=== PATIENT | male | born 1955 | race Caucasian/White ===

== ENCOUNTER → 2023-03-12 | Outpatient (CLI) | payer MEDICARE, OTHER ==
--- NOTE | 2023-03-12 18:47 | CA ---
Transthoracic Echo Report Name: Lico Cristina Age: 67 Gender: M : 1955 Exam Date: 03/12/2023 16:27 Exam Location: [facility] Ht (in): 68 Wt (lb): 310 Ordering Physician: Joni Josue MD Attending/Referring Phys: Teresa Teran PAC Health Equipment Servicer Emma Bullard [facility] Procedure CPT: Indications: R01.1 Murmur Cardiac Hx: Technical Quality: Technically difficult study Contrast 1: Total Dose (mL): Contrast 2: Total Dose (mL): MEASUREMENTS (Male / Female) Normal Values 2D ECHO LV Diastolic Diameter PLAX 5.0 cm 4.2 - 5.9 / 3.9 - 5.3 cm LV Systolic Diameter PLAX 3.6 cm IVS Diastolic Thickness 1.0 cm 0.6 - 1.0 / 0.6 - 0.9 cm LVPW Diastolic Thickness 0.9 cm 0.6 - 1.0 / 0.6 - 0.9 cm LV Relative Wall Thickness 0.4 LVOT Diameter 2.0 cm Ascending Aorta Diameter 4.0 cm M-MODE Aortic Root Diameter MM 2.8 cm LA Systolic Diameter MM 3.6 cm LA Ao Ratio MM 1.3 AV Cusp Separation MM 1.4 cm DOPPLER AV Peak Velocity 187.2 cm/s AV Peak Gradient 14.0 mmHg AV Mean Velocity 135.0 cm/s AV Mean Gradient 8.2 mmHg AV Velocity Time Integral 35.0 cm LVOT Peak Velocity 95.8 cm/s LVOT Peak Gradient 3.7 mmHg LVOT Velocity Time Integral 19.5 cm LVOT Stroke Volume 59.6 cm??? LVOT Stroke Volume Index 24.2 ml/m??? LVOT Cardiac Index 1561.0 cm???/min???m??? AV Area Cont Eq vti 1.7 cm??? AV Area Cont Eq pk 1.6 cm??? Mitral E Point Velocity 58.8 cm/s Mitral A Point Velocity 75.6 cm/s Mitral E to A Ratio 0.8 MV Deceleration Time 207.9 ms LV E' Lateral Velocity 11.1 cm/s Mitral E to LV E' Lateral Ratio 5.3 LV E' Septal Velocity 8.4 cm/s Mitral E to LV E' Septal Ratio 7.0 Right Atrial Pressure 3.0 mmHg FINDINGS Left Ventricle Left ventricular cavity size at the upper limits of normal. Left ventricular cavity size normal. Low normal left ventricular systolic function with no obvious regional wall motion abnormalities. Left ventricular ejection fraction is estimated at 55-60 %. Right Ventricle Mild right ventricular dilatation. Unable to estimate the right ventricular systolic pressure. Right Atrium Mild right atrial dilatation. Left Atrium Normal left atrial size. Mitral Valve Structurally normal mitral valve. No mitral regurgitation. Aortic Valve Aortic valve sclerosis. No aortic regurgitation. Tricuspid Valve Structurally normal tricuspid valve. No tricuspid regurgitation. Pulmonic Valve Pulmonic valve not well visualized. Pericardium No pericardial effusion. Echo free space anterior to the right ventricle likely represents a fat pad. Aorta Normal size aortic root and mildly dilated proximal ascending aorta. CONCLUSIONS 1. Normal left ventricle size and systolic function 2. Aortic sclerosis with no evidence of significant stenosis 3.Technically difficult study. Previewed by: Dr. Austin Saenz MD (Electronically Signed) Final Date: 12 March 2023 18:46
== END | disposition home or self-care (01) ==
LOC: RADECHMAIN 16:14
PROVIDERS: ATTEND Family Medicine
DX: R01.1 Cardiac murmur, unspecified (principal); I35.8 Other nonrheumatic aortic valve disorders
CPT/HCPCS: 93306

== ENCOUNTER 2023-09-14 15:10 | Emergency (ER) | payer MEDICARE, OTHER ==
--- NOTE | 2023-09-14 15:56 | ED ---
General Adult HPI - General Chief complaint: Recheck/Abnormal Lab/Rx Stated complaint: Catheter issues Time Seen by Provider: 09/14/23 15:28 Source: patient, RN notes reviewed Mode of arrival: ambulatory Limitations: no limitations - History of Present Illness Initial comments: This is a 68-year-old male with a history of prostatomegaly presents emergency department chief complaint of suprapubic tenderness and potential complications with his urinary catheter. States that he has had a indwelling urinary catheter over the past 2 months due to experiencing urinary retention with the diagnosis of prostatic hyperplasia. Patient states that he was seen at [facility] on where he was discharged home with topical antibiotic cream for his meatus in addition to some oral antibiotics the medication that he is finished. He denies discoloration or foul odor from his urinary catheter drainage bag. Patient is unaware of the date of his last thinner change, states that it was most likely in the middle of August. Denies fevers, nausea, vomiting, diarrhea, constipation. - Related Data Previous Rx's Medication Instructions Recorded Ciprofloxacin HCl [Cipro] 500 mg PO Q12HR #20 tablet 09/14/23 Allergies Allergy/AdvReac Type Severity Reaction Status Date / Time No Known Allergies Allergy Verified 09/14/23 15:14 Review of Systems ROS Statement: Those systems with pertinent positive or pertinent negative responses have been documented in the HPI. ROS Other: All systems not noted in ROS Statement are negative. Past Medical History Past Medical History: Diabetes Mellitus, Prostate Disorder Past Surgical History: Orthopedic Surgery Past Psychological History: No Psychological Hx Reported Smoking Status: Never smoker Past Alcohol Use History: None Reported Past Drug Use History: None Reported General Exam Limitations: no limitations General appearance: alert, in no apparent distress Head exam: Present: atraumatic, normocephalic, normal inspection Eye exam: Present: normal appearance, PERRL, EOMI. Absent: scleral icterus, conjunctival injection, periorbital swelling ENT exam: Present: normal exam, mucous membranes moist Neck exam: Present: normal inspection. Absent: tenderness, meningismus, lymphadenopathy Respiratory exam: Present: normal lung sounds bilaterally. Absent: respiratory distress, wheezes, rales, rhonchi, stridor Cardiovascular Exam: Present: regular rate, normal rhythm, normal heart sounds. Absent: systolic murmur, diastolic murmur, rubs, gallop, clicks GI/Abdominal exam: Present: soft, tenderness (suprapubic), normal bowel sounds. Absent: distended, guarding, rebound, rigid exam: Present: urethral discharge, other (purulent drainage noted from the meatus, tenderness to examination). Absent: normal inspection Extremities exam: Present: normal inspection, full ROM, normal capillary refill. Absent: tenderness, pedal edema, joint swelling, calf tenderness Back exam: Present: normal inspection Neurological exam: Present: alert, oriented X3, CN II-XII intact Psychiatric exam: Present: normal affect, normal mood Skin exam: Present: warm, dry, intact, normal color. Absent: rash Course Vital Signs 09/14/23 09/14/23 09/14/23 15:11 16:25 18:10 Temperature 98.4 F 98.9 F Pulse Rate 111 H 94 96 Respiratory 20 18 18 Rate Blood Pressure 130/68 143/80 103/68 O2 Sat by Pulse 99 97 99 Oximetry Medical Decision Making - Medical Decision Making Was pt. sent in by a medical professional or institution (, PA, DISABILITY BENEFITS SPECIALIST, urgent care, hospital, or [facility]...) When possible be specific @ -No Did you speak to anyone other than the patient for history (EMS, parent, family, police, friend...)? What history was obtained from this source @ -No Did you review nursing and triage notes (agree or disagree)? Why? @ -I reviewed and agree with nursing and triage notes Were old charts reviewed (outside hosp., previous admission, EMS record, old EKG, old radiological studies, urgent care reports/EKG's, [facility] records)? Report findings @ -No old charts were reviewed Differential Diagnosis (chest pain, altered mental status, abdominal pain women, abdominal pain men, vaginal bleeding, weakness, fever, dyspnea, syncope, headache, dizziness, GI bleed, back pain, seizure, CVA, palpatations, mental health, musculoskeletal)? @ -Differential Abdominal Pain Men: Appendicitis, cholecystitis, diverticulosis, ischemic bowel, pancreatitis, hepatitis, UTI, gastroenteritis, AAA, incarcerated hernia, bowel obstruction, constipation, inflammatory bowel, hepatitis, peptic ulcer disease, splenic infarction, perforated viscus, testicular torsion, this is not meant to be an all-inclusive list EKG interpreted by me (3pts min.). @ -None X-rays interpreted by me (1pt min.). @ -None done CT interpreted by me (1pt min.). @ -None done U/S interpreted by me (1pt. min.). @ -None done What testing was considered but not performed or refused? (CT, X-rays, U/S, labs)? Why? @ -Labs and imaging were considered but deferred at this time due to patient having localized pain in his suprapubic region in addition to discharge from the meatus. What meds were considered but not given or refused? Why? @ -None Did you discuss the management of the patient with other professionals (professionals i.e. Dr., PA, DISABILITY BENEFITS SPECIALIST, lab, RT, psych nurse, social services aide, four horse hitch driver, teacher, submarine advisory team watch officer, spring encaser)? Give summary @ -No Was smoking cessation discussed for >3mins.? @ -No Was critical care preformed (if so, how long)? @ -No Were there social determinants of health that impacted care today? How? (Homelessness, low income, unemployed, alcoholism, drug addiction, transportation, low edu. Level, literacy, decrease access to med. care, [facility]ci, rehab)? @ -No Was there de-escalation of care discussed even if they declined (Discuss DNR or withdrawal of care, Hospice)? DNR status @ -No What co-morbidities impacted this encounter? (DM, HTN, Smoking, COPD, CAD, Cancer, CVA, ARF, Chemo, Hep., AIDS, mental health diagnosis, sleep apnea, morbid obesity)? @ -Obesity, hypertension. Was patient admitted / discharged? Hospital course, mention meds given and route, prescriptions, significant lab abnormalities, going to OR and other pertinent info. @ -Discharge. 68-year-old male chief complaint of suprapubic pain and tenderness. On examination patient noted to have suprapubic tenderness, abdomen is soft no signs of rebound tenderness or rigidity. Additionally on examination patient's Kaur catheter noted to have drainage. Patient being unaware of when last catheter was replaced order for replacement of Kaur catheter in addition to a urinalysis sent. Discussion with nursing staff stated that bladder scan revealed over 1000 cc of urine within the bladder. On replacement of the Kaur catheter there was a large amount of sediment within the Kaur tubing. On reinsertion the catheter was flowing well with output of over 1000 cc. Urinalysis sent revealed Of infection including moderate blood, large leukocyte esterase, greater than 182 white blood cells and many white blood cell clumps. Reevaluation, patient states that his abdominal pain has markedly improved after pain medication and replacement of catheter. Test with patient at bedside he is unaware of what medication he was prescribed at [facility] when she completed a few days ago. Patient will be discharged home on oral Cipro and instructed to follow-up with his urologist as scheduled. Strict return parameters discussed with the patient. All questions answered at bedside. Case discussed with Dr. Marie. Undiagnosed new problem with uncertain prognosis? @ -No Drug Therapy requiring intensive monitoring for toxicity (Heparin, Nitro, Insulin, Cardizem)? @ -No Were any procedures done? @ -No Diagnosis/symptom? @ -Urinary tract infection, BPH, indwelling Kaur catheter. Acute, or Chronic, or Acute on Chronic? @ -Acute Uncomplicated (without systemic symptoms) or Complicated (systemic symptoms)? @ -Uncomplicated Side effects of treatment? @ -No Exacerbation, Progression, or Severe Exacerbation? @ -No Poses a threat to life or bodily function? How? (Chest pain, [place], [place], pneumonia, PE, COPD, DKA, ARF, appy, cholecystitis, CVA, Diverticulitis, Homicidal, Suicidal, threat to staff... and all critical care pts) @ -No - Lab Data Lab Results 09/14/23 Range/Units 16:28 Urine Color Colorless Urine Appearance Cloudy (Clear) Urine pH 5.5 (5.0-8.0) Ur Specific [place] 1.014 (1.001-1.035) Urine Protein 1+ H (Negative) Urine Glucose (UA) 4+ H (Negative) Urine Ketones Negative (Negative) Urine Blood Moderate H (Negative) Urine Nitrite Negative (Negative) Urine Bilirubin Negative (Negative) Urine Urobilinogen <2.0 (<2.0) mg/dL Ur Leukocyte Esterase Large H (Negative) Urine RBC 67 H (0-5) /hpf Urine WBC >182 H (0-5) /hpf Urine WBC Clumps Many H (None) /hpf Ur Squamous Epith Cells <1 (0-4) /hpf Urine Bacteria Occasional H (None) /hpf Urine Mucus Rare H (None) /hpf Urine Yeast (Budding) Rare H (None) /hpf Disposition Clinical Impression: Urinary tract infection associated with catheterization of urinary tract Narrative: Please return to the Emergency Department if symptoms worsen or any other concerns. Follow-up as scheduled with your urologist this week for further evaluation. Complete full course of antibiotics as prescribed. Disposition: HOME SELF-CARE Condition: Good Instructions (If sedation given, give patient instructions): Urinary Tract Infection in Men (DC) Prescriptions: Ciprofloxacin HCl [Cipro] 500 mg PO Q12HR #20 tablet Is patient prescribed a controlled substance at d/c from ED?: No Referrals: Joni Josue MD [Primary Care Provider] - 1-2 days Time of Disposition: 17:54
[2023-09-14] MEDS: HYDROmorphone 1 MG/ML 1 ML SYRINGE IM STA (16:28)
[2023-09-14 16:56] VITALS: RESP 18
[2023-09-14 17:35] LABS: Appearance,Urine Cloudy (Clear); Bacteria,Urine Occasional /hpf; Bilirubin,Urine Negative (Negative); Blood,Urine Moderate (Negative); Budding Yeast,Urine Rare /hpf; Color,Urine Colorless; Glucose,Urine (UA) 4+ (Negative); Ketones,Urine Negative (Negative); Leukocyte Esterase,Urine Large (Negative); Mucus,Urine Rare /hpf; Nitrite,Urine Negative (Negative); PH, Urine 5.5 (5.0-8.0); Protein,Urine 1+ (Negative); RBC,Urine 67 /hpf (0-5); Specific Gravity,Urine 1.014 (1.001-1.035); Squamous Epithelial Cell,Urine <1 /hpf (0-4); Urobilinogen,Urine <2.0 mg/dL (<2.0); WBC,Urine >182 /hpf (0-5)
[2023-09-14 18:14] VITALS: BP 103/68; PULSE 96; TEMP 98.9
== END 2023-09-14 18:13 | disposition home or self-care (01) ==
LOC: EC 15:10
DX: T83.098A Other mechanical complication of other urinary catheter, initial encounter (principal)
CPT/HCPCS: 51798; 81001; 99284; 96372; 51702; J1170

== ENCOUNTER 2023-09-27 02:38 | Emergency (ER) | payer MEDICARE, OTHER ==
--- NOTE | 2023-09-27 02:57 | ED ---
Abdominal Pain HPI - General Chief Complaint: Abdominal Pain Stated Complaint: Catheter Malfunction Time Seen by Provider: 09/27/23 02:57 Source: patient Mode of arrival: ambulatory Limitations: no limitations - History of Present Illness Initial Comments: Lico is a 68-year-old man whose had a Kaur catheter in place for 2 weeks, he has had to have it replaced multiple times. Patient states that he feels like it is occluded and he has not been able to drain his bladder he is having significant suprapubic discomfort. Patient states that he was supposed to see urology on to have the catheter removed however he did not make it to his appointment so the catheter remained in place. - Related Data Previous Rx's Medication Instructions Recorded Ciprofloxacin HCl [Cipro] 500 mg PO Q12HR #20 tablet 09/14/23 Cephalexin [Keflex] 500 mg PO Q6HR 10 Days #40 cap 09/27/23 Allergies Allergy/AdvReac Type Severity Reaction Status Date / Time No Known Allergies Allergy Verified 09/14/23 15:14 Review of Systems ROS Statement: Those systems with pertinent positive or pertinent negative responses have been documented in the HPI. ROS Other: All systems not noted in ROS Statement are negative. Past Medical History Past Medical History: Diabetes Mellitus, Prostate Disorder Past Surgical History: Orthopedic Surgery Past Psychological History: No Psychological Hx Reported Smoking Status: Never smoker Past Alcohol Use History: None Reported Past Drug Use History: None Reported General Exam - General Exam Comments Initial Comments: Physical Exam GENERAL: Patient is well-developed and well-nourished. Patient is nontoxic and well-hydrated and is in no distress. HENT: Normocephalic, Atraumatic EYES: PERRL, EOMI PULMONARY: Unlabored respirations. CARDIOVASCULAR: RRR Warm and well perfused extremities ABDOMEN: Non-distended SKIN: No rashes or bruising : Buried penis purulent discharge around the Kaur NEUROLOGIC: Alert and oriented Normal speech Normal gait MUSCULOSKELETAL: Moving all extremities with no apparent injury PSYCHIATRIC: No SI/HI Limitations: no limitations Course Vital Signs 09/27/23 09/27/23 02:53 06:11 Temperature 98.3 F Pulse Rate 117 H 91 Respiratory 20 19 Rate Blood Pressure 138/79 128/61 O2 Sat by Pulse 97 96 Oximetry Medical Decision Making - Lab Data Lab Results 09/27/23 Range/Units 04:47 Urine Color Red Urine Appearance Turbid (Clear) Urine pH 5.5 (5.0-8.0) Ur Specific Spearman 1.023 (1.001-1.035) Urine Protein 1+ H (Negative) Urine Glucose (UA) 3+ H (Negative) Urine Ketones Trace H (Negative) Urine Blood Large H (Negative) Urine Nitrite Negative (Negative) Urine Bilirubin Negative (Negative) Urine Urobilinogen <2.0 (<2.0) mg/dL Ur Leukocyte Esterase Large H (Negative) Urine RBC >182 H (0-5) /hpf Urine WBC >182 H (0-5) /hpf Urine Bacteria Occasional H (None) /hpf Urine Mucus Few H (None) /hpf Ur Yeast w Hyphae Few (None) /hpf Urine Yeast (Budding) Many H (None) /hpf Disposition Clinical Impression: Urinary tract infection associated with catheterization of urinary tract Disposition: HOME SELF-CARE Condition: Stable Prescriptions: Cephalexin [Keflex] 500 mg PO Q6HR 10 Days #40 cap Is patient prescribed a controlled substance at d/c from ED?: No Referrals: Joni Josue MD [Primary Care Provider] - 1-2 days
[2023-09-27 03:05] VITALS: TEMP 98.3
[2023-09-27 05:27] LABS: Appearance,Urine Turbid (Clear); Bacteria,Urine Occasional /hpf; Bilirubin,Urine Negative (Negative); Blood,Urine Large (Negative); Budding Yeast,Urine Many /hpf; Color,Urine Red; Glucose,Urine (UA) 3+ (Negative); Hyphae Yeast, Urine Few /hpf; Ketones,Urine Trace (Negative); Leukocyte Esterase,Urine Large (Negative); Mucus,Urine Few /hpf; Nitrite,Urine Negative (Negative); PH, Urine 5.5 (5.0-8.0); Protein,Urine 1+ (Negative); RBC,Urine >182 /hpf (0-5); Urobilinogen,Urine <2.0 mg/dL (<2.0); WBC,Urine >182 /hpf (0-5)
[2023-09-27 05:28] LABS: Specific Gravity,Urine 1.023 (1.001-1.035)
[2023-09-27 06:42] VITALS: BP 128/61; PULSE 91; RESP 19
[2023-09-27] MEDS: CEPHALEXIN 500MG STARTER PACK 4 CAP BTL PO STA (07:35)
== END 2023-09-27 07:41 | disposition home or self-care (01) ==
LOC: EC 02:38
DX: T83.098A Other mechanical complication of other urinary catheter, initial encounter (principal); N39.0 Urinary tract infection, site not specified
CPT/HCPCS: 51702; 51798; 81001; 87086; 99284

== ENCOUNTER 2023-10-04 23:37 | Emergency (ER) | payer MEDICARE, OTHER ==
[2023-10-04 23:59] VITALS: BP 155/81; PULSE 92; RESP 18; TEMP 98.9
--- NOTE | 2023-10-05 00:33 | ED ---
General Adult HPI - General Chief complaint: Urogenital Stated complaint: clogged cath Time Seen by Provider: 10/05/23 00:27 Source: patient, RN notes reviewed, old records reviewed Mode of arrival: ambulatory Limitations: no limitations - History of Present Illness Initial comments: 68-year-old male presenting with clogged urinary catheter. Patient has indwelling Kaur catheter for urinary retention. He states that he has not had any urine output for the past several hours. He does have some lower abdominal discomfort. No fever. No vomiting. - Related Data Previous Rx's Medication Instructions Recorded Ciprofloxacin HCl [Cipro] 500 mg PO Q12HR #20 tablet 09/14/23 Cephalexin [Keflex] 500 mg PO Q6HR 10 Days #40 cap 09/27/23 Allergies Allergy/AdvReac Type Severity Reaction Status Date / Time No Known Allergies Allergy Verified 10/04/23 23:42 Review of Systems ROS Statement: Those systems with pertinent positive or pertinent negative responses have been documented in the HPI. ROS Other: All systems not noted in ROS Statement are negative. Past Medical History Past Medical History: Diabetes Mellitus, Prostate Disorder Past Surgical History: Orthopedic Surgery Past Psychological History: No Psychological Hx Reported Smoking Status: Never smoker Past Alcohol Use History: None Reported Past Drug Use History: None Reported General Exam Limitations: no limitations General appearance: alert, in no apparent distress Head exam: Present: atraumatic, normocephalic Eye exam: Present: normal appearance, PERRL ENT exam: Present: normal exam Neck exam: Present: normal inspection. Absent: tenderness, meningismus Respiratory exam: Present: normal lung sounds bilaterally. Absent: respiratory distress, wheezes Cardiovascular Exam: Present: regular rate, normal rhythm GI/Abdominal exam: Present: soft. Absent: distended, tenderness, guarding Extremities exam: Present: normal inspection Neurological exam: Present: alert, oriented X3 Psychiatric exam: Present: normal affect, normal mood Skin exam: Present: warm, dry, intact. Absent: cyanosis, diaphoretic Course Vital Signs 10/04/23 23:40 Temperature 98.9 F Pulse Rate 92 Respiratory 18 Rate Blood Pressure 155/81 O2 Sat by Pulse 99 Oximetry Medical Decision Making - Medical Decision Making Was pt. sent in by a medical professional or institution (, PA, REFINING EQUIPMENT OPERATOR, urgent care, hospital, or residential...) When possible be specific @ -No Did you speak to anyone other than the patient for history (EMS, parent, family, police, friend...)? What history was obtained from this source @ -No Did you review nursing and triage notes (agree or disagree)? Why? @ -I reviewed and agree with nursing and triage notes Were old charts reviewed (outside hosp., previous admission, EMS record, old EKG, old radiological studies, urgent care reports/EKG's, residential records)? Report findings @ -No old charts were reviewed Differential Diagnosis:, UTI, clogged urinary catheter EKG interpreted by me (3pts min.). @ -As above X-rays interpreted by me (1pt min.). @ -None done CT interpreted by me (1pt min.). @ -None done U/S interpreted by me (1pt. min.). @ -None done What testing was considered but not performed or refused? (CT, X-rays, U/S, labs)? Why? @ -None What meds were considered but not given or refused? Why? @ -None Did you discuss the management of the patient with other professionals (professionals i.e. , PA, REFINING EQUIPMENT OPERATOR, lab, RT, psych nurse, social sciences department chair, director of conservation, teacher, accounting officer, mattress spring encaser)? Give summary @ -No Was smoking cessation discussed for >3mins.? @ -No Was critical care preformed (if so, how long)? @ -No Were there social determinants of health that impacted care today? How? (Homelessness, low income, unemployed, alcoholism, drug addiction, transportation, low edu. Level, literacy, decrease access to med. care, custodial, rehab)? @ -No Was there de-escalation of care discussed even if they declined (Discuss DNR or withdrawal of care, Hospice)? DNR status @ -No What co-morbidities impacted this encounter? (DM, HTN, Smoking, COPD, CAD, Cancer, CVA, ARF, Chemo, Hep., AIDS, mental health diagnosis, sleep apnea, morbid obesity)? @ -None Was patient admitted / discharged? Hospital course, mention meds given and route, prescriptions, significant lab abnormalities, going to OR and other pertinent info. @ -Kaur catheter exchanged, urinalysis is positive, culture pending, started on antibiotics. Undiagnosed new problem with uncertain prognosis? @ -No Drug Therapy requiring intensive monitoring for toxicity (Heparin, Nitro, Insulin, Cardizem)? @ -No Were any procedures done? @ -No Diagnosis/symptom? @Clogged urinary catheter Acute, or Chronic, or Acute on Chronic? @ -acute Uncomplicated (without systemic symptoms) or Complicated (systemic symptoms)? @ -Default Side effects of treatment? @ -No Exacerbation, Progression, or Severe Exacerbation? @ -No Poses a threat to life or bodily function? How? (Chest pain, [place], [place], pneumonia, PE, COPD, DKA, ARF, appy, cholecystitis, CVA, Diverticulitis, Homicidal, Suicidal, threat to staff... and all critical care pts) @ -No Disposition Clinical Impression: Malfunction of Kaur catheter, Urinary tract infection associated with catheterization of urinary tract Disposition: HOME SELF-CARE Condition: Good Instructions (If sedation given, give patient instructions): Kaur Catheter Placement and Care (ED) Is patient prescribed a controlled substance at d/c from ED?: No Referrals: Joni Josue MD [Primary Care Provider] - 1-2 days Mohsen Barkley MD [STAFF PHYSICIAN] - 1-2 days Time of Disposition: 00:32
[2023-10-05 00:48] LABS: Appearance,Urine Cloudy (Clear); Bilirubin,Urine Negative (Negative); Blood,Urine Trace (Negative); Budding Yeast,Urine Many /hpf; Color,Urine Colorless; Glucose,Urine (UA) 4+ (Negative); Hyphae Yeast, Urine Many /hpf; Ketones,Urine Negative (Negative); Leukocyte Esterase,Urine Large (Negative); Mucus,Urine Rare /hpf; Nitrite,Urine Negative (Negative); PH, Urine 6.5 (5.0-8.0); Protein,Urine Negative (Negative); RBC,Urine 32 /hpf (0-5); Specific Gravity,Urine 1.022 (1.001-1.035); Urobilinogen,Urine <2.0 mg/dL (<2.0); WBC,Urine >182 /hpf (0-5)
== END 2023-10-05 00:34 | disposition home or self-care (01) ==
LOC: EC 23:37
DX: T83.091A Other mechanical complication of indwelling urethral catheter, initial encounter (principal); N39.0 Urinary tract infection, site not specified
CPT/HCPCS: 51702; 81001; 87086; 99283

== ENCOUNTER 2023-10-12 18:16 | Emergency (ER) | payer MEDICARE, OTHER ==
[2023-10-12 19:07] VITALS: TEMP 98.3
--- NOTE | 2023-10-12 19:34 | ED ---
General Adult HPI - General Chief complaint: Urogenital Stated complaint: blocked catheter Time Seen by Provider: 10/12/23 18:55 Source: patient, RN notes reviewed Mode of arrival: ambulatory Limitations: no limitations - History of Present Illness Initial comments: 68-year-old male presents to the emergency department for Chahal catheter issues. Patient states that he has had an indwelling Chahal catheter for 2 months. It has become clogged multiple times in this time period. He reports that it was last changed about 1 week ago. States that it stopped draining around 3pm today. He states that it is in place as he has an enlarged prostate. He has an appointment for urology on the of this month. Denies recent fever, chills, nausea, vomiting. - Related Data Previous Rx's Medication Instructions Recorded Ciprofloxacin HCl [Cipro] 500 mg PO Q12HR #20 tablet 09/14/23 Cephalexin [Keflex] 500 mg PO Q6HR 10 Days #40 cap 09/27/23 Cephalexin [Keflex] 500 mg PO Q12HR #20 cap 10/05/23 Allergies Allergy/AdvReac Type Severity Reaction Status Date / Time No Known Allergies Allergy Verified 10/12/23 18:46 Review of Systems ROS Statement: Those systems with pertinent positive or pertinent negative responses have been documented in the HPI. ROS Other: All systems not noted in ROS Statement are negative. Past Medical History Past Medical History: Diabetes Mellitus, Prostate Disorder History of Any Multi-Drug Resistant Organisms: None Reported Past Surgical History: Orthopedic Surgery Past Psychological History: No Psychological Hx Reported Smoking Status: Never smoker Past Alcohol Use History: None Reported Past Drug Use History: None Reported General Exam Limitations: no limitations General appearance: alert, in no apparent distress Head exam: Present: atraumatic, normocephalic, normal inspection Eye exam: Present: normal appearance, PERRL, EOMI. Absent: scleral icterus, conjunctival injection, periorbital swelling Respiratory exam: Present: normal lung sounds bilaterally. Absent: respiratory distress, wheezes, rales, rhonchi, stridor Cardiovascular Exam: Present: regular rate, normal rhythm, normal heart sounds. Absent: systolic murmur, diastolic murmur, rubs, gallop, clicks GI/Abdominal exam: Present: soft, distended (Suprapubic), normal bowel sounds. Absent: tenderness, guarding, rebound, rigid Extremities exam: Present: pedal edema Neurological exam: Present: alert, oriented X3 Psychiatric exam: Present: normal affect, normal mood Skin exam: Present: warm, dry, intact, normal color. Absent: rash Course Vital Signs 10/12/23 10/12/23 10/12/23 18:43 19:02 21:39 Temperature 97.8 F 98.3 F Pulse Rate 86 69 64 Respiratory 17 18 19 Rate Blood Pressure 92/51 110/72 96/70 O2 Sat by Pulse 99 99 100 Oximetry Medical Decision Making - Medical Decision Making Was pt. sent in by a medical professional or institution (, [facility], DEVELOPER [employer]AT[employer], urgent care, hospital, or fpc...) When possible be specific @ -No Did you speak to anyone other than the patient for history (EMS, parent, family, police, friend...)? What history was obtained from this source @ -No Did you review nursing and triage notes (agree or disagree)? Why? @ -I reviewed and agree with nursing and triage notes Were old charts reviewed (outside hosp., previous admission, EMS record, old EKG, old radiological studies, urgent care reports/EKG's, fpc records)? Report findings @ -No old charts were reviewed Differential Diagnosis (chest pain, altered mental status, abdominal pain women, abdominal pain men, vaginal bleeding, weakness, fever, dyspnea, syncope, headache, dizziness, GI bleed, back pain, seizure, CVA, palpatations, mental health, musculoskeletal)? @ -UTI, hematuria, clogged chahal catheter, this list is not all inclusive EKG interpreted by me (3pts min.). @ -None X-rays interpreted by me (1pt min.). @ -None done CT interpreted by me (1pt min.). @ -None done U/S interpreted by me (1pt. min.). @ -None done What testing was considered but not performed or refused? (CT, X-rays, U/S, labs)? Why? @ -None What meds were considered but not given or refused? Why? @ -None Did you discuss the management of the patient with other professionals (professionals i.e. MALENA Lorenzo, [employer]EL[employer], lab, RT, psych nurse, social media editor, grade checker, teacher, aviation ordnance officer, caser shoe parts)? Give summary @ -No Was smoking cessation discussed for >3mins.? @ -No Was critical care preformed (if so, how long)? @ -No Were there social determinants of health that impacted care today? How? (Homelessness, low income, unemployed, alcoholism, drug addiction, transportation, low edu. Level, literacy, decrease access to med. care, group home, rehab)? @ -No Was there de-escalation of care discussed even if they declined (Discuss DNR or withdrawal of care, Hospice)? DNR status @ -No What co-morbidities impacted this encounter? (DM, HTN, Smoking, COPD, CAD, Cancer, CVA, ARF, Chemo, Hep., AIDS, mental health diagnosis, sleep apnea, morbid obesity)? @ -None Was patient admitted / discharged? Hospital course, mention meds given and route, prescriptions, significant lab abnormalities, going to OR and other pertinent info. @ -Discharged. Patient presented to the emergency department for evaluation of decreased urine output from chahal catheter. It does not appear that the patient is caring for the chahal appropriately. Chahal was replaced. He was advised on appropriate care. UA was obtained which contained yeast. Will be sent for culture. Patient was given a dose of diflucan. Advised on appropriate wound care and follow-up with urology. He is understanding agreeable plan. Patient stable for discharge. Case discussed with Dr. Dong Undiagnosed new problem with uncertain prognosis? @ -No Drug Therapy requiring intensive monitoring for toxicity (Heparin, Nitro, Insulin, Cardizem)? @ -No Were any procedures done? @ -No Diagnosis/symptom? @ -chahal catheter malfunction Acute, or Chronic, or Acute on Chronic? @ -Acute Uncomplicated (without systemic symptoms) or Complicated (systemic symptoms)? @ -uncomplicated Side effects of treatment? @ -No Exacerbation, Progression, or Severe Exacerbation? @ -No Poses a threat to life or bodily function? How? (Chest pain, [place], [place], pneumonia, PE, COPD, DKA, ARF, appy, cholecystitis, CVA, Diverticulitis, Homicidal, Suicidal, threat to staff... and all critical care pts) @ -No - Lab Data Lab Results 10/12/23 Range/Units 20:02 Urine Color Light Yellow Urine Appearance Clear (Clear) Urine pH 5.0 (5.0-8.0) Ur Specific [place] 1.017 (1.001-1.035) Urine Protein Negative (Negative) Urine Glucose (UA) 4+ H (Negative) Urine Ketones Negative (Negative) Urine Blood Large H (Negative) Urine Nitrite Negative (Negative) Urine Bilirubin Negative (Negative) Urine Urobilinogen <2.0 (<2.0) mg/dL Ur Leukocyte Esterase Moderate H (Negative) Urine RBC >182 H (0-5) /hpf Urine WBC 35 H (0-5) /hpf Urine Mucus Rare H (None) /hpf Ur Yeast w Hyphae Occasional (None) /hpf Urine Yeast (Budding) Occasional H (None) /hpf Disposition Clinical Impression: Malfunction of Chahal catheter Disposition: HOME SELF-CARE Condition: Stable Instructions (If sedation given, give patient instructions): Chahal Catheter Placement and Care (ED) Additional Instructions: Please follow up with urology as scheduled. Return to the emergency department for new or worsening symptoms. Is patient prescribed a controlled substance at d/c from ED?: No Referrals: Joni Josue MD [Primary Care Provider] - 1-2 days
[2023-10-12 20:43] LABS: Appearance,Urine Clear (Clear); Bilirubin,Urine Negative (Negative); Blood,Urine Large (Negative); Budding Yeast,Urine Occasional /hpf; Color,Urine Light Yellow; Glucose,Urine (UA) 4+ (Negative); Hyphae Yeast, Urine Occasional /hpf; Ketones,Urine Negative (Negative); Leukocyte Esterase,Urine Moderate (Negative); Mucus,Urine Rare /hpf; Nitrite,Urine Negative (Negative); Protein,Urine Negative (Negative); RBC,Urine >182 /hpf (0-5); Specific Gravity,Urine 1.017 (1.001-1.035); Urobilinogen,Urine <2.0 mg/dL (<2.0); WBC,Urine 35 /hpf (0-5)
[2023-10-12] MEDS: FLUCONAZOLE 100 MG TAB PO ONE (21:32)
[2023-10-12] MEDS: Acetaminophen-Codeine 300-30mg TAB PO STA (21:38)
[2023-10-12 21:41] VITALS: BP 96/70; PULSE 64; RESP 19
== END 2023-10-12 21:53 | disposition home or self-care (01) ==
LOC: EC 18:16
DX: T83.098A Other mechanical complication of other urinary catheter, initial encounter (principal)
CPT/HCPCS: 51702; 81001; 87086; 99283

== ENCOUNTER 2023-10-26 16:59 | Emergency (ER) | payer MEDICARE, OTHER ==
[2023-10-26 17:14] VITALS: RESP 16; TEMP 98
--- NOTE | 2023-10-26 17:30 | ED ---
General Adult HPI - General Chief complaint: Urogenital Stated complaint: cath malfunction Time Seen by Provider: 10/26/23 17:16 Source: patient, RN notes reviewed Mode of arrival: ambulatory Limitations: no limitations - History of Present Illness Initial comments: 68-year-old male with a past medical history significant for enlarged prostate presenting to the ED with a chief complaint of catheter issue. Patient reports he has had a catheter in for the last 2 months. Is scheduled for prostate surgery on the of this month with neurology. States today has not been draining normally prompting presentation to the ED for further evaluation. Reports last time he had a catheter change was his prior visit here for the same issue on 10/12/2023. Otherwise, denies any complaints. Denies abdominal pain, back pain, fever, chills. No other complaints at this time. - Related Data Home Medications Medication Instructions Recorded Confirmed Aspirin [Adult Low Dose Aspirin EC] 81 mg PO DAILY 10/23/23 10/23/23 Celecoxib 200 mg PO DAILY 10/23/23 10/23/23 Cholecalciferol [Vitamin D3 (125 125 mcg PO DAILY 10/23/23 10/23/23 Mcg = 5000 Iu)] Dapagliflozin Propanediol [Farxiga] 10 mg PO DAILY 10/23/23 10/23/23 Potassium Chloride [K-Tab ER] 20 meq PO DAILY 10/23/23 10/23/23 Rivaroxaban [Xarelto] 2.5 mg PO BID 10/23/23 10/23/23 Tirzepatide [Mounjaro] 7.5 mg SQ WE 10/23/23 10/23/23 lisinopriL [Prinivil] 12.5 mg PO QAM 10/23/23 10/23/23 Allergies Allergy/AdvReac Type Severity Reaction Status Date / Time No Known Allergies Allergy Verified 10/26/23 17:15 Review of Systems ROS Statement: Those systems with pertinent positive or pertinent negative responses have been documented in the HPI. ROS Other: All systems not noted in ROS Statement are negative. Past Medical History Past Medical History: Diabetes Mellitus, Prostate Disorder History of Any Multi-Drug Resistant Organisms: None Reported Past Surgical History: Orthopedic Surgery Past Psychological History: No Psychological Hx Reported Smoking Status: Never smoker Past Alcohol Use History: None Reported Past Drug Use History: None Reported General Exam Limitations: no limitations General appearance: alert, in no apparent distress Eye exam: Present: normal appearance Neck exam: Present: normal inspection Respiratory exam: Present: normal lung sounds bilaterally Cardiovascular Exam: Present: regular rate GI/Abdominal exam: Present: soft exam: Present: other (Kaur cath in place. Bag has straw-colored urine.) Neurological exam: Present: alert, oriented X3 Skin exam: Present: warm, dry Course Vital Signs 10/26/23 10/26/23 17:11 17:31 Temperature 98 F Pulse Rate 69 76 Respiratory 16 16 Rate Blood Pressure 121/67 126/51 O2 Sat by Pulse 97 95 Oximetry Medical Decision Making - Medical Decision Making Was pt. sent in by a medical professional or institution (, PA, HYDR[employer] GENERATION SUPERVISOR, urgent care, hospital, or [facility]...) When possible be specific @ -No Did you speak to anyone other than the patient for history (EMS, parent, family, police, friend...)? What history was obtained from this source @ -No Did you review nursing and triage notes (agree or disagree)? Why? @ -I reviewed and agree with nursing and triage notes Were old charts reviewed (outside hosp., previous admission, EMS record, old EKG, old radiological studies, urgent care reports/EKG's, [facility] records)? Report findings @ -Reviewed prior visit. For further details please see HPI. Differential Diagnosis (chest pain, altered mental status, abdominal pain women, abdominal pain men, vaginal bleeding, weakness, fever, dyspnea, syncope, headache, dizziness, GI bleed, back pain, seizure, CVA, palpatations, mental health, musculoskeletal)? @ -Differential Abdominal Pain Men: Appendicitis, cholecystitis, diverticulosis, ischemic bowel, pancreatitis, hepatitis, UTI, gastroenteritis, AAA, incarcerated hernia, bowel obstruction, constipation, inflammatory bowel, hepatitis, peptic ulcer disease, splenic infarction, perforated viscus, testicular torsion, this is not meant to be an all-inclusive list EKG interpreted by me (3pts min.). @ -None X-rays interpreted by me (1pt min.). @ -None CT interpreted by me (1pt min.). @ -None done U/S interpreted by me (1pt. min.). @ -None done What testing was considered but not performed or refused? (CT, X-rays, U/S, labs)? Why? @ -None What meds were considered but not given or refused? Why? @ -None Did you discuss the management of the patient with other professionals (professionals i.e. Dr., PA, HYDRO GENERATION SUPERVISOR, lab, RT, psych nurse, child welfare social worker, hand crown pouncer, teacher, booking officer, casework supervisor)? Give summary @ -No Was smoking cessation discussed for >3mins.? @ -No Was critical care preformed (if so, how long)? @ -No Were there social determinants of health that impacted care today? How? (Homelessness, low income, unemployed, alcoholism, drug addiction, transportation, low edu. Level, literacy, decrease access to med. care, prison, rehab)? @ -No Was there de-escalation of care discussed even if they declined (Discuss DNR or withdrawal of care, Hospice)? DNR status @ -No What co-morbidities impacted this encounter? (DM, HTN, Smoking, COPD, CAD, Cancer, CVA, ARF, Chemo, Hep., AIDS, mental health diagnosis, sleep apnea, morbid obesity)? @ -None Was patient admitted / discharged? Hospital course, mention meds given and route, prescriptions, significant lab abnormalities, going to OR and other pertinent info. @ -Discharge 68-year-old male with a history of urinary retention with Kaur cath and for the past 2 months last changed at his previous visit on 10/12/2023 presenting to the ED with complaints that his Kaur is not draining. No abdominal pain, flank pain, fever, chills. Kaur was manipulated and irrigated with successful dr crawley. UA reviewed. Does show some evidence of infection with large leukocyte Estrace, 79 white blood cells however no bacteria. Patient also currently on antibiotics. Patient discharged home in stable condition and advised close follow-up with his urologist as scheduled. Discussed return precautions with patient who verbalized agreement. Undiagnosed new problem with uncertain prognosis? @ -No Drug Therapy requiring intensive monitoring for toxicity (Heparin, Nitro, Insulin, Cardizem)? @ -No Were any procedures done? @ -No Diagnosis/symptom? @ -Urinary retention Acute, or Chronic, or Acute on Chronic? @ -Acute Uncomplicated (without systemic symptoms) or Complicated (systemic symptoms)? @ -Uncomplicated Side effects of treatment? @ -No Exacerbation, Progression, or Severe Exacerbation? @ -No Poses a threat to life or bodily function? How? (Chest pain, [place], [place], pneumonia, PE, COPD, DKA, ARF, appy, cholecystitis, CVA, Diverticulitis, Homicidal, Suicidal, threat to staff... and all critical care pts) @ -No - Lab Data Lab Results 10/26/23 Range/Units 18:29 Urine Color Light Yellow Urine Appearance Cloudy (Clear) Urine pH 6.0 (5.0-8.0) Ur Specific [place] 1.018 (1.001-1.035) Urine Protein Negative (Negative) Urine Glucose (UA) 4+ H (Negative) Urine Ketones Negative (Negative) Urine Blood Small H (Negative) Urine Nitrite Negative (Negative) Urine Bilirubin Negative (Negative) Urine Urobilinogen <2.0 (<2.0) mg/dL Ur Leukocyte Esterase Large H (Negative) Urine RBC 63 H (0-5) /hpf Urine WBC 79 H (0-5) /hpf Urine Mucus Rare H (None) /hpf Urine Yeast (Budding) Many H (None) /hpf Disposition Clinical Impression: Urinary retention Disposition: HOME SELF-CARE Condition: Good Instructions (If sedation given, give patient instructions): Kaur Catheter Placement and Care (ED) Additional Instructions: Please return to the Emergency Department if symptoms worsen or any other concerns. Please follow-up with your urologist. Is patient prescribed a controlled substance at d/c from ED?: No Referrals: Joni Josue MD [Primary Care Provider] - 1-2 days Time of Disposition: 18:54
[2023-10-26 18:49] LABS: Appearance,Urine Cloudy (Clear); Bilirubin,Urine Negative (Negative); Blood,Urine Small (Negative); Budding Yeast,Urine Many /hpf; Color,Urine Light Yellow; Glucose,Urine (UA) 4+ (Negative); Ketones,Urine Negative (Negative); Leukocyte Esterase,Urine Large (Negative); Mucus,Urine Rare /hpf; Nitrite,Urine Negative (Negative); Protein,Urine Negative (Negative); RBC,Urine 63 /hpf (0-5); Specific Gravity,Urine 1.018 (1.001-1.035); Urobilinogen,Urine <2.0 mg/dL (<2.0); WBC,Urine 79 /hpf (0-5)
[2023-10-26 19:03] VITALS: BP 122/63; PULSE 55
== END 2023-10-26 19:03 | disposition home or self-care (01) ==
LOC: EC 16:59
DX: R33.9 Retention of urine, unspecified (principal)
CPT/HCPCS: 51798; 81001; 99284

== ENCOUNTER 2023-10-28 10:17 | Day surgery (SDC) | payer MEDICARE, OTHER ==
[2023-10-23 16:10] VITALS: BMI 44.8
--- NOTE | 2023-10-28 09:00 | P.HPIHPCON ---
History of Present Illness H&P Date: 10/28/23 Chief Complaint: Urinary retention This is a 68-year-old male with history of urinary retention, has failed multiple trial voids. CT demonstrated evidence of 80 to 90 g prostate, he did undergo a cystoscopy by at [facility] which showed evidence of an obstructive prostate. Discussed with him the option of a TURP, aware the risk which includes but not limited to bleeding, infection, urinary incontinence, retrograde ejaculation, persistent retention even with a TURP. Risk of anesthesia was also discussed with him. He understood all the risk and agreed to proceed Consent for Procedure: I have explained the operation/procedure to the patient, including the risks, benefits, side effects, alternative therapies (including not receiving the proposed treatment or service), the likelihood of the patient achieving his/her goals, and potential recuperation problems for the procedure/sedation/analgesia, as well as any blood products, if indicated. I also explained to the patient the risks, benefits and side effects of the alternatives, as well as the risks related to not receiving the proposed procedure, care, treatment, or services. Past Medical History Past Medical History: Diabetes Mellitus, Hypertension, Prostate Disorder Additional Past Medical History / Comment(s): Difficulty urinating due to enlarged prostate, has chahal catheter. Right knee pain at night. History of Any Multi-Drug Resistant Organisms: None Reported Past Surgical History: Appendectomy, Hernia Repair, Orthopedic Surgery Additional Past Surgical History / Comment(s): Right thumb surgery. Past Anesthesia/Blood Transfusion Reactions: No Reported Reaction Smoking Status: Never smoker - Past Family History Mother Family Medical History: No Reported History Medications and Allergies Home Medications Medication Instructions Recorded Confirmed Type Aspirin [Adult Low Dose Aspirin EC] 81 mg PO DAILY 10/23/23 10/23/23 History Celecoxib 200 mg PO DAILY 10/23/23 10/23/23 History Cholecalciferol [Vitamin D3 (125 125 mcg PO DAILY 10/23/23 10/23/23 History Mcg = 5000 Iu)] Dapagliflozin Propanediol [Farxiga] 10 mg PO DAILY 10/23/23 10/23/23 History Potassium Chloride [K-Tab ER] 20 meq PO DAILY 10/23/23 10/23/23 History Rivaroxaban [Xarelto] 2.5 mg PO BID 10/23/23 10/23/23 History Tirzepatide [Mounjaro] 7.5 mg SQ WE 10/23/23 10/23/23 History lisinopriL [Prinivil] 12.5 mg PO QAM 10/23/23 10/23/23 History Allergies Allergy/AdvReac Type Severity Reaction Status Date / Time No Known Allergies Allergy Verified 10/26/23 17:15 Surgical - Exam - General no distress, no pain - Eyes normal ocular movement, no pale - ENT normal nares, normal mucosa - Respiratory normal expansion, normal respiratory effort - Abdomen Abdomen: soft, non tender Assessment and Plan Assessment: OR for TURP
[2023-10-28] MEDS ORDERED: fentaNYL (PF) 50 MCG/ML 2 ML AMP IVP PRN (10:49)
[2023-10-28] MEDS ORDERED: MIDAZOLAM 2 MG/2 ML VIAL IV PRN (10:49)
[2023-10-28] MEDS ORDERED: HYDROmorphone 0.5 MG/0.5 ML SYRINGE IVP PRN (10:49)
[2023-10-28] MEDS: IV FLUID CONTINUATION 1,000 ML IV ONE (11:12)
[2023-10-28] MEDS: LACTATED RINGERS 1,000 ML IV SCH (11:12)
[2023-10-28] MEDS: LIDOCAINE 1% (10MG/ML) FOR IV START INTRADERMA PRN (11:12)
[2023-10-28] MEDS: DEXAMETHASONE SOD PHOSPHATE 4 MG/ML 1 ML VIAL IV ONE (11:27)
[2023-10-28] MEDS: ONDANSETRON 4 MG/2 ML VIAL IVP ONE (11:27)
[2023-10-28 11:34] LABS: Glucose,Whole Blood 100 mg/dL (70-110)
[2023-10-28] MEDS ORDERED: KETAMINE HCL IN 0.9 % NACL 50 MG/5 ML SYRINGE ONE (11:53)
[2023-10-28] MEDS ORDERED: GLYCOPYRROLATE 0.2 MG/ML 2 ML VIAL ONE (11:53)
[2023-10-28] MEDS ORDERED: PROPOFOL 10 MG/ML 20 ML VIAL IV ONE (11:53)
[2023-10-28] MEDS ORDERED: SUCCINYLCHOLINE CHLORIDE 200 MG/10 ML VIAL IV ONE (11:53)
[2023-10-28] MEDS ORDERED: fentaNYL (PF) 50 MCG/ML 2 ML AMP ONE (11:53)
[2023-10-28] MEDS ORDERED: ROCURONIUM 10 MG/ML (5 ML VIAL) IV ONE (11:53)
[2023-10-28] MEDS ORDERED: NEOSTIGMINE 1 MG/ML 10 ML VIAL ONE (11:53)
[2023-10-28] MEDS ORDERED: MIDAZOLAM 2 MG/2 ML VIAL ONE (11:53)
[2023-10-28] MEDS ORDERED: LIDOCAINE 1% INJ 10MG/ML (20 ML MDV) ONE (11:53)
[2023-10-28] MEDS: SODIUM CHLORIDE 0.9% 50 ML with ceFAZolin 3,000 MG IV ONE (11:58)
--- NOTE | 2023-10-28 13:52 | P.OP ---
Date of Procedure: 10/28/23 Preoperative Diagnosis: BPH, urinary retention Postoperative Diagnosis: Same Procedure(s) Performed: TURP (bipolar) Implants: None Anesthesia: LESAA Surgeon: Franck Boles Estimated Blood Loss (ml): 200 Pathology: other (Prostate chips) Condition: stable Disposition: PACU Indications for Procedure: This is a 68-year-old male with history of urinary retention, has failed multiple trial voids. CT demonstrated evidence of 80 to 90 g prostate, he did undergo a cystoscopy by at [facility] which showed evidence of an obstructive prostate. Discussed with him the option of a TURP, aware the risk which includes but not limited to bleeding, infection, urinary incontinence, retrograde ejaculation, persistent retention even with a TURP. Risk of anesthesia was also discussed with him. He understood all the risk and agreed to proceed Operative Findings: Bilateral occlusive lateral lobes, with a small median lobe Description of Procedure: Patient brought to the operating room, general anesthesia was induced. He was prepped and draped as a fashion placed in dorsolithotomy position. Resectoscope fitted with 25 [place] sheath was inserted per urethra, cystoscopy was performed showed a mildly trabeculated bladder, otherwise no abnormality within the bladder. Patient had a significant enlargement of the bilateral lateral lobes and they were completely occlusive. There is also evidence for a small median lobe. Using the bipolar resectoscope the prostate was resected down to surgical's capsules staying distal to the bladder neck and proximal to the Cheryl. Of note the prostate was significantly hypervascular, thus the left lateral lobe was resected with a loop, but given the hypervascularity the median and the right lateral lobe was resected down using the button given the slight diminished visualization secondary to bleeding. Given patient's morbid obesity, I was unable to access the anterior portion of the prostate using the resectoscope thus anteriorly was not resected given inability to do that following the completion of the resection I used the button to obtain complete hemostasis of the prostate fossa. All prostate chips was irrigated out, and the end of resection the prostatic fossa was wide open, there was no evidence of bleeding, injury to the ureteral orifice or the external sphincter.. At this time the resectoscope was withdrawn and a 22 [place] hematuria catheter was placed with the return of clear urine, balloon was inflated to 30 mL. Catheter was irrigated to clear without any difficulties. Patient was awakened from anesthesia and taken to recovery in stable condition
[2023-10-28 14:00] VITALS: TEMP 96.8
[2023-10-28 14:46] VITALS: RESP 16
[2023-10-28 14:54] LABS: Glucose,Whole Blood 116 mg/dL (70-110)
[2023-10-28 15:16] VITALS: BP 120/70; PULSE 72
== END 2023-10-28 15:32 | disposition home or self-care (01) ==
LOC: OR 10:17
PROVIDERS: ATTEND Urology
DX: N40.1 Benign prostatic hyperplasia with lower urinary tract symptoms (principal); R33.8 Other retention of urine; I10 Essential (primary) hypertension; E11.9 Type 2 diabetes mellitus without complications; Z79.01 Long term (current) use of anticoagulants; Z79.1 Long term (current) use of non-steroidal anti-inflammatories (NSAID); Z79.84 Long term (current) use of oral hypoglycemic drugs; Z90.49 Acquired absence of other specified parts of digestive tract; Z98.890 Other specified postprocedural states; Z79.899 Other long term (current) drug therapy
CPT/HCPCS: 88305; 52601; J2250; J0330; J1100; J2710; J2405; J0690; J2001; J3010; J2704

== ENCOUNTER 2023-11-06 11:44 | Emergency (ER) | payer MEDICARE, OTHER ==
[2023-11-06 11:50] VITALS: RESP 18; TEMP 98
--- NOTE | 2023-11-06 12:08 | ED ---
Male Urogenital HPI - General Chief complaint: Urogenital Stated complaint: post-cath removal issues Time Seen by Provider: 11/06/23 11:55 Source: patient, RN notes reviewed Mode of arrival: ambulatory Limitations: no limitations - History of Present Illness Initial comments: 68-year-old male presents emergency department chief complaint of unable to uri beth. Patient states he had recent prostate surgery had his Chahal catheter removed yesterday afternoon by Dr. Boles in which she states he felt fine initially but states has not urinated since. He states he feels a large amount of lower abdominal pressure, discomfort. Denies any fevers or chills denies any flank pain. Patient offers no other associated symptoms. - Related Data Home Medications Medication Instructions Recorded Confirmed Aspirin [Adult Low Dose Aspirin EC] 81 mg PO DAILY 10/23/23 10/23/23 Celecoxib 200 mg PO DAILY 10/23/23 10/23/23 Cholecalciferol [Vitamin D3 (125 125 mcg PO DAILY 10/23/23 10/23/23 Mcg = 5000 Iu)] Dapagliflozin Propanediol [Farxiga] 10 mg PO DAILY 10/23/23 10/23/23 Potassium Chloride [K-Tab ER] 20 meq PO DAILY 10/23/23 10/23/23 Rivaroxaban [Xarelto] 2.5 mg PO BID 10/23/23 10/23/23 Tirzepatide [Mounjaro] 7.5 mg SQ WE 10/23/23 10/23/23 lisinopriL [Prinivil] 12.5 mg PO QAM 10/23/23 10/23/23 Allergies Allergy/AdvReac Type Severity Reaction Status Date / Time No Known Allergies Allergy Verified 10/26/23 17:15 Review of Systems ROS Statement: Those systems with pertinent positive or pertinent negative responses have been documented in the HPI. ROS Other: All systems not noted in ROS Statement are negative. Past Medical History Past Medical History: Diabetes Mellitus, Prostate Disorder Additional Past Medical History / Comment(s): Difficulty urinating due to enlarged prostate, has chahal catheter. Right knee pain at night. History of Any Multi-Drug Resistant Organisms: None Reported Past Surgical History: Orthopedic Surgery Additional Past Surgical History / Comment(s): Right thumb surgery. Past Anesthesia/Blood Transfusion Reactions: No Reported Reaction Past Psychological History: No Psychological Hx Reported Smoking Status: Never smoker - Past Family History Mother Family Medical History: No Reported History General Exam Limitations: no limitations General appearance: alert, in no apparent distress Head exam: Present: atraumatic, normocephalic, normal inspection Respiratory exam: Present: normal lung sounds bilaterally. Absent: respiratory distress, wheezes, rales, rhonchi, stridor Cardiovascular Exam: Present: regular rate, normal rhythm, normal heart sounds. Absent: systolic murmur, diastolic murmur, rubs, gallop, clicks GI/Abdominal exam: Present: soft, tenderness (Lower abdominal), normal bowel sounds. Absent: distended, guarding, rebound, rigid Back exam: Absent: CVA tenderness (R), CVA tenderness (L) Neurological exam: Present: alert Skin exam: Present: warm, dry, intact, normal color. Absent: rash Course Vital Signs 11/06/23 11:47 Temperature 98.0 F Pulse Rate 75 Respiratory 18 Rate Blood Pressure 141/77 O2 Sat by Pulse 96 Oximetry Medical Decision Making - Medical Decision Making Was pt. sent in by a medical professional or institution (, [facility], [facility], urgent care, hospital, or jail...) When possible be specific @ -No Did you speak to anyone other than the patient for history (EMS, parent, family, police, friend...)? What history was obtained from this source @ -No Did you review nursing and triage notes (agree or disagree)? Why? @ -I reviewed and agree with nursing and triage notes Were old charts reviewed (outside hosp., previous admission, EMS record, old EKG, old radiological studies, urgent care reports/EKG's, jail records)? Report findings @ -No old charts were reviewed Differential Diagnosis (chest pain, altered mental status, abdominal pain women, abdominal pain men, vaginal bleeding, weakness, fever, dyspnea, syncope, headache, dizziness, GI bleed, back pain, seizure, CVA, palpatations, mental health, musculoskeletal)? @ -Urinary retention, UTI, hematuria EKG interpreted by me (3pts min.). @ -None X-rays interpreted by me (1pt min.). @ -None done CT interpreted by me (1pt min.). @ -None done U/S interpreted by me (1pt. min.). @ -None done What testing was considered but not performed or refused? (CT, X-rays, U/S, labs)? Why? @ -None What meds were considered but not given or refused? Why? @ -None Did you discuss the management of the patient with other professionals (professionals i.e. , PA, [facility], lab, RT, psych nurse, mental health social worker, fur floor worker, teacher, correctional officer lieutenant, telephonic case manager)? Give summary @ -No Was smoking cessation discussed for >3mins.? @ -No Was critical care preformed (if so, how long)? @ -No Were there social determinants of health that impacted care today? How? (Homelessness, low income, unemployed, alcoholism, drug addiction, transportation, low edu. Level, literacy, decrease access to med. care, retirement, rehab)? @ -No Was there de-escalation of care discussed even if they declined (Discuss DNR or withdrawal of care, Hospice)? DNR status @ -No What co-morbidities impacted this encounter? (DM, HTN, Smoking, COPD, CAD, Cancer, CVA, ARF, Chemo, Hep., AIDS, mental health diagnosis, sleep apnea, morbid obesity)? @ -None Was patient admitted / discharged? Hospital course, mention meds given and route, prescriptions, significant lab abnormalities, going to OR and other pertinent info. @ -Discharge patient had urinary retention Chahal catheter was placed by nurse. Patient had relief will be discharged in stable condition follow-up with urology Undiagnosed new problem with uncertain prognosis? @ -No Drug Therapy requiring intensive monitoring for toxicity (Heparin, Nitro, Insulin, Cardizem)? @ -No Were any procedures done? @ -No Diagnosis/symptom? @ -Urinary retention Acute, or Chronic, or Acute on Chronic? @ -Acute Uncomplicated (without systemic symptoms) or Complicated (systemic symptoms)? @ -Uncomplicated Side effects of treatment? @ -No Exacerbation, Progression, or Severe Exacerbation? @ -No Poses a threat to life or bodily function? How? (Chest pain, USA, PA, pneumonia, PE, COPD, DKA, ARF, appy, cholecystitis, CVA, Diverticulitis, Homicidal, Suicidal, threat to staff... and all critical care pts) @ -No Disposition Clinical Impression: Urinary retention Disposition: HOME SELF-CARE Condition: Stable Instructions (If sedation given, give patient instructions): Urinary Retention in Men (ED) Additional Instructions: Please return to the Emergency Department if symptoms worsen or any other concerns. Is patient prescribed a controlled substance at d/c from ED?: No Referrals: Joni Josue MD [Primary Care Provider] - 1-2 days Time of Disposition: 12:26
[2023-11-06 12:57] VITALS: BP 136/76; PULSE 82
== END 2023-11-06 12:57 | disposition home or self-care (01) ==
LOC: EC 11:44
DX: R33.9 Retention of urine, unspecified (principal)
CPT/HCPCS: 51702; 99283

== ENCOUNTER 2023-11-18 03:05 | Emergency (ER) | payer MEDICARE, OTHER ==
[2023-11-18 03:27] VITALS: RESP 18
[2023-11-18 04:59] LABS: Appearance,Urine Turbid (Clear); Bacteria,Urine Many /hpf; Bilirubin,Urine Negative (Negative); Blood,Urine Large (Negative); Color,Urine Light Red; Glucose,Urine (UA) 4+ (Negative); Ketones,Urine Negative (Negative); Leukocyte Esterase,Urine Large (Negative); Mucus,Urine Rare /hpf; Nitrite,Urine Negative (Negative); PH, Urine 6.5 (5.0-8.0); Protein,Urine 1+ (Negative); RBC,Urine >182 /hpf (0-5); Specific Gravity,Urine 1.017 (1.001-1.035); Urobilinogen,Urine <2.0 mg/dL (<2.0); WBC,Urine >182 /hpf (0-5)
--- NOTE | 2023-11-18 05:57 | ED ---
General Adult HPI - General Chief complaint: Urogenital Stated complaint: cath issues Time Seen by Provider: 11/18/23 03:30 Source: patient, RN notes reviewed, old records reviewed Mode of arrival: ambulatory Limitations: no limitations - History of Present Illness Initial comments: Patient is a 68-year-old male who presents emergency department with Chahal catheter issues. Has not been draining since approximately midnight. Recently had it placed by his urologist Dr. Boles. Has a history of enlarged prostate. Denies any significant complaints otherwise. Has noticed some blood in his catheter. Presents for further evaluation. - Related Data Home Medications Medication Instructions Recorded Confirmed Aspirin [Adult Low Dose Aspirin EC] 81 mg PO DAILY 10/23/23 10/23/23 Celecoxib 200 mg PO DAILY 10/23/23 10/23/23 Cholecalciferol [Vitamin D3 (125 125 mcg PO DAILY 10/23/23 10/23/23 Mcg = 5000 Iu)] Dapagliflozin Propanediol [Farxiga] 10 mg PO DAILY 10/23/23 10/23/23 Potassium Chloride [K-Tab ER] 20 meq PO DAILY 10/23/23 10/23/23 Rivaroxaban [Xarelto] 2.5 mg PO BID 10/23/23 10/23/23 Tirzepatide [Mounjaro] 7.5 mg SQ WE 10/23/23 10/23/23 lisinopriL [Prinivil] 12.5 mg PO QAM 10/23/23 10/23/23 Previous Rx's Medication Instructions Recorded Ciprofloxacin HCl [Cipro] 500 mg PO Q12HR 7 Days #14 tab 11/18/23 Allergies Allergy/AdvReac Type Severity Reaction Status Date / Time No Known Allergies Allergy Verified 11/18/23 03:23 Review of Systems ROS Statement: Those systems with pertinent positive or pertinent negative responses have been documented in the HPI. Review of Systems: CONST: Denies fever EYES: Denies blurry vision ENT: Denies nasal congestion C/V: Denies Chest pain RESP: Denies shortness of breath GI: Denies abdominal pain : Endorses urinary retention despite Chahal catheter placement SKIN: Denies rash. MSK: Denies joint pain. NEURO: Denies headache ROS Other: All systems not noted in ROS Statement are negative. Past Medical History Past Medical History: Diabetes Mellitus, Prostate Disorder Additional Past Medical History / Comment(s): Difficulty urinating due to enlarged prostate, has chahal catheter. Right knee pain at night. History of Any Multi-Drug Resistant Organisms: None Reported Past Surgical History: Appendectomy, Hernia Repair, Orthopedic Surgery Additional Past Surgical History / Comment(s): Right thumb surgery. Past Anesthesia/Blood Transfusion Reactions: No Reported Reaction Past Psychological History: No Psychological Hx Reported Smoking Status: Never smoker Past Alcohol Use History: None Reported Past Drug Use History: None Reported - Past Family History Mother Family Medical History: No Reported History General Exam - General Exam Comments Initial Comments: General: Appears in no acute distress. HEAD: Normal with no signs of head trauma. EYES: EOMI. ENT: Hearing grossly intact. RESPIRATORY: No respiratory distress. C/V: Regular rate and rhythm. ABD: Abdomen is nondistended. Hematuria. Concern for Chahal catheter obstruction. Some mild suprapubic abdominal discomfort. No significant distention. EXT: No obvious deformity. SKIN: No rashes or lesions observed on exposed skin. NEURO: Alert and oriented. Limitations: no limitations Course Vital Signs 11/18/23 11/18/23 03:24 06:03 Temperature 97.3 F L 98.2 F Pulse Rate 89 68 Respiratory 18 18 Rate Blood Pressure 128/78 114/65 O2 Sat by Pulse 97 99 Oximetry Medical Decision Making - Medical Decision Making Was pt. sent in by a medical professional or institution (MALENA Lorenzo, MAGNETIC GRINDER OPERATOR, urgent care, hospital, or assisted...) When possible be specific @ -No Did you speak to anyone other than the patient for history (EMS, parent, family, police, friend...)? What history was obtained from this source @ -No Did you review nursing and triage notes (agree or disagree)? Why? @ -I reviewed and agree with nursing and triage notes Were old charts reviewed (outside hosp., previous admission, EMS record, old EKG, old radiological studies, urgent care reports/EKG's, assisted records)? Report findings @ -No old charts were reviewed Differential Diagnosis (chest pain, altered mental status, abdominal pain women, abdominal pain men, vaginal bleeding, weakness, fever, dyspnea, syncope, headache, dizziness, GI bleed, back pain, seizure, CVA, palpatations, mental health, musculoskeletal)? @ -Chahal catheter obstruction, UTI, urinary retention. This list is not all inclusive. EKG interpreted by me (3pts min.). @ -None done X-rays interpreted by me (1pt min.). @ -None done CT interpreted by me (1pt min.). @ -None done U/S interpreted by me (1pt. min.). @ -None done What testing was considered but not performed or refused? (CT, X-rays, U/S, labs)? Why? @ -None What meds were considered but not given or refused? Why? @ -None Did you discuss the management of the patient with other professionals (professionals i.e. , PA, MAGNETIC GRINDER OPERATOR, lab, RT, psych nurse, case management social worker, power generation engineer, teacher, sailing officer, bottle caser)? Give summary @ -No Was smoking cessation discussed for >3mins.? @ -No Was critical care preformed (if so, how long)? @ -No Were there social determinants of health that impacted care today? How? (Homelessness, low income, unemployed, alcoholism, drug addiction, transportation, low edu. Level, literacy, decrease access to med. care, correction, rehab)? @ -No Was there de-escalation of care discussed even if they declined (Discuss DNR or withdrawal of care, Hospice)? DNR status @ -No What co-morbidities impacted this encounter? (DM, HTN, Smoking, COPD, CAD, Cancer, CVA, ARF, Chemo, Hep., AIDS, mental health diagnosis, sleep apnea, morbid obesity)? @ -None Was patient admitted / discharged? Hospital course, mention meds given and route, prescriptions, significant lab abnormalities, going to OR and other pertinent info. @ -Patient presents with urinary retention, Chahal catheter obstruction. Bladder scan shows over 400 cc of urine in the bladder. Chahal was replaced. Patient is draining light pink urine at this time. Patient was observed in continued good drainage throughout his stay. He will be started on antibiotics for what appears to be UTI. Patient was in agreement this plan. Vital signs currently within acceptable limits. Recommended follow-up with his urologist. I will provide the patient with a prescription for ciprofloxacin. I instructed the patient to follow up with their PCP in the next 1-3 days.. I explained that the patient should return to the emergency department if they experience any worsening symptoms. Strict return precautions were discussed with the patient. The patient expressed understanding of these instructions. I answered all questions that the patient had. The patient was discharged home in good condition with their prescriptions and follow up information. Undiagnosed new problem with uncertain prognosis? @ -No Drug Therapy requiring intensive monitoring for toxicity (Heparin, Nitro, Insulin, Cardizem)? @ -No Were any procedures done? @ -No Diagnosis/symptom? @ -Chahal catheter obstruction, UTI, urinary retention Acute, or Chronic, or Acute on Chronic? @ -Acute Uncomplicated (without systemic symptoms) or Complicated (systemic symptoms)? @ -Complicated Side effects of treatment? @ -None Exacerbation, Progression, or Severe Exacerbation] @ -No Poses a threat to life or bodily function? @ -Unlikely - Lab Data Lab Results 11/18/23 Range/Units 04:10 Urine Color Light Red Urine Appearance Turbid (Clear) Urine pH 6.5 (5.0-8.0) Ur Specific [place] 1.017 (1.001-1.035) Urine Protein 1+ H (Negative) Urine Glucose (UA) 4+ H (Negative) Urine Ketones Negative (Negative) Urine Blood Large H (Negative) Urine Nitrite Negative (Negative) Urine Bilirubin Negative (Negative) Urine Urobilinogen <2.0 (<2.0) mg/dL Ur Leukocyte Esterase Large H (Negative) Urine RBC >182 H (0-5) /hpf Urine WBC >182 H (0-5) /hpf Urine WBC Clumps Many H (None) /hpf Urine Bacteria Many H (None) /hpf Urine Mucus Rare H (None) /hpf Disposition Clinical Impression: Urinary retention, Malfunction of Chahal catheter, UTI (urinary tract infection) Disposition: HOME SELF-CARE Condition: Good Instructions (If sedation given, give patient instructions): Urinary Tract Infection in Men (ED) Prescriptions: Ciprofloxacin HCl [Cipro] 500 mg PO Q12HR 7 Days #14 tab Is patient prescribed a controlled substance at d/c from ED?: No Referrals: Joni Josue MD [Primary Care Provider] - 1-2 days Time of Disposition: 05:57
[2023-11-18 06:05] VITALS: BP 114/65; PULSE 68; TEMP 98.2
[2023-11-18] MEDS: CIPROFLOXACIN HCL 500 MG TAB PO STA (06:08)
== END 2023-11-18 06:11 | disposition home or self-care (01) ==
LOC: EC 03:05
DX: T83.098A Other mechanical complication of other urinary catheter, initial encounter (principal); N39.0 Urinary tract infection, site not specified; R33.9 Retention of urine, unspecified; Y73.8 Miscellaneous gastroenterology and urology devices associated with adverse incidents, not elsewhere classified
CPT/HCPCS: 51702; 81001; 99283

== ENCOUNTER 2024-01-04 09:22 | Emergency (ER) | payer MEDICARE, OTHER ==
[2024-01-04 09:28] VITALS: TEMP 98.1
--- NOTE | 2024-01-04 10:17 | ED ---
Male Urogenital HPI - General Chief complaint: Urogenital Stated complaint: Cath Issues Time Seen by Provider: 01/04/24 10:14 Source: patient, RN notes reviewed Mode of arrival: ambulatory Limitations: no limitations - History of Present Illness Initial comments: 68-year-old male presented to the ER with a chief complaint of hematuria. Patient underwent a TURP procedure for enlarged prostate causing urinary retention by Dr. Chawla on Friday, . He states since the procedure he has noticed bleeding from insertion site and in his urine. He is not on any blood thinning medications. He states this morning he noticed "wet nests on his thigh". He states it was blood which brought him to the ER. He is reporting mild pain. He has not taken anything for pain at this time. Denies fevers, chills, nausea, vomiting, constipation/diarrhea. No other complaints - Related Data Home Medications Medication Instructions Recorded Confirmed Aspirin [Adult Low Dose Aspirin EC] 81 mg PO DAILY 10/23/23 12/29/23 Dapagliflozin Propanediol [Farxiga] 10 mg PO QAM 10/23/23 12/29/23 Potassium Chloride [K-Tab ER] 20 meq PO DAILY 10/23/23 12/29/23 Tirzepatide [Mounjaro] 7.5 mg SQ WE 10/23/23 12/29/23 Atorvastatin [Lipitor] 20 mg PO DAILY 12/29/23 12/29/23 Glimepiride 2 mg PO BID 12/29/23 12/29/23 Oxybutynin ER [Ditropan XL] 10 mg PO BID 12/29/23 12/29/23 Allergies Allergy/AdvReac Type Severity Reaction Status Date / Time No Known Allergies Allergy Verified 01/04/24 09:28 Review of Systems ROS Statement: Those systems with pertinent positive or pertinent negative responses have been documented in the HPI. ROS Other: All systems not noted in ROS Statement are negative. Past Medical History Past Medical History: Diabetes Mellitus, Prostate Disorder Additional Past Medical History / Comment(s): Difficulty urinating due to enlarged prostate, has chahal catheter. Right knee pain at night. History of Any Multi-Drug Resistant Organisms: None Reported Past Surgical History: Appendectomy, Hernia Repair, Orthopedic Surgery Additional Past Surgical History / Comment(s): TURP, OCTOBER 2023. Right thumb surgery. Past Anesthesia/Blood Transfusion Reactions: No Reported Reaction Past Psychological History: No Psychological Hx Reported Smoking Status: Never smoker - Past Family History Mother Family Medical History: No Reported History General Exam Limitations: no limitations General appearance: alert, in no apparent distress Respiratory exam: Present: normal lung sounds bilaterally. Absent: respiratory distress, wheezes, rales, rhonchi, stridor Cardiovascular Exam: Present: regular rate, normal rhythm, normal heart sounds. Absent: systolic murmur, diastolic murmur, rubs, gallop, clicks GI/Abdominal exam: Present: soft, normal bowel sounds. Absent: distended, tenderness, guarding, rebound, rigid exam: Present: other (chahal catheter in place. no active bleeding. dried blood on inner left thigh) Neurological exam: Present: alert, oriented X3, CN II-XII intact Skin exam: Present: warm, dry, intact, normal color. Absent: rash Course Vital Signs 01/04/24 01/04/24 09:25 11:31 Temperature 98.1 F Pulse Rate 82 70 Respiratory 16 18 Rate Blood Pressure 116/70 128/73 O2 Sat by Pulse 98 98 Oximetry - Reevaluation(s) Reevaluation #1: 01/04/24 11:15 Case discussed with on-call urology, Dr. Barkley advised on outpatient follow-up. He also recommended drinking plenty of fluids to wash out bladder. Medical Decision Making - Medical Decision Making Was pt. sent in by a medical professional or institution (, PA, SENIOR PROJECT LEADER/TEAM LEAD, urgent care, hospital, or intermediate...) When possible be specific @ -No Did you speak to anyone other than the patient for history (EMS, parent, family, police, friend...)? What history was obtained from this source @ -No Did you review nursing and triage notes (agree or disagree)? Why? @ -I reviewed and agree with nursing and triage notes Were old charts reviewed (outside hosp., previous admission, EMS record, old EKG, old radiological studies, urgent care reports/EKG's, intermediate records)? Report findings @ -Yes, I reviewed charts from procedure completed on by Dr. Boles. Patient underwent TURP fro enlarged prostate causing urinary retention. Patient discharged with chahal catheter in place. Differential Diagnosis (chest pain, altered mental status, abdominal pain women, abdominal pain men, vaginal bleeding, weakness, fever, dyspnea, syncope, headache, dizziness, GI bleed, back pain, seizure, CVA, palpatations, mental health, musculoskeletal)? @ -UTI, bladder cancer, urinary retention, prostatomegaly... list is not all inclusive EKG interpreted by me (3pts min.). @ -None X-rays interpreted by me (1pt min.). @ -None done CT interpreted by me (1pt min.). @ -None done U/S interpreted by me (1pt. min.). @ -None done What testing was considered but not performed or refused? (CT, X-rays, U/S, labs)? Why? @ -None What meds were considered but not given or refused? Why? @ -None Did you discuss the management of the patient with other professionals (professionals i.e. , PA, SENIOR PROJECT LEADER/TEAM LEAD, lab, RT, psych nurse, social work program coordinator, fruit press operator, teacher, disability liaison officer, nurse case management)? Give summary @ -Yes, I discussed this case with on-call urology, Dr. Barkley, who advised on outpatient follow-up. He also recommened drinking plenty of fluids to flush out bladder. Was smoking cessation discussed for >3mins.? @ -No Was critical care preformed (if so, how long)? @ -No Were there social determinants of health that impacted care today? How? (Homelessness, low income, unemployed, alcoholism, drug addiction, transportation, low edu. Level, literacy, decrease access to med. care, [facility], rehab)? @ -No Was there de-escalation of care discussed even if they declined (Discuss DNR or withdrawal of care, Hospice)? DNR status @ -No What co-morbidities impacted this encounter? (DM, HTN, Smoking, COPD, CAD, Cancer, CVA, ARF, Chemo, Hep., AIDS, mental health diagnosis, sleep apnea, morb id obesity)? @ -Enlarged prostate Was patient admitted / discharged? Hospital course, mention meds given and route, prescriptions, significant lab abnormalities, going to OR and other pertinent info. @ -Discharged. 68 year old male presenting to the ER with a chief complaint of hematuria. History and physical exam completed. Vitals WNL. Patient in no signs of acute distress and nontoxic-appearing. No focal abdominal tenderness. Normal bowel sounds with no rebound or guarding. Chahal catheter in place and draining blood-tinged urine in tubing and catheter bag. Urinalysis showing greater than 182 RBCs and many WBCs. Patient is currently on antibiotics but is unsure of which one. Case discussed with on-call urology, Dr. Barkley, who advised on outpatient follow-up. He also advised patient to drink plenty of water to flush out blood. Patient does report he has a follow-up on Friday with Dr. Boles. Upon reevaluation, patient in no signs of acute distress extremely eager for discharge. Results discussed with patient, all questions answered. Return parameters discussed. Patient discharged in stable condition. Patient verbally expressed understanding and agreed with care plan. Case discussed with ED attending, Dr. Fernández. Undiagnosed new problem with uncertain prognosis? @ -No Drug Therapy requiring intensive monitoring for toxicity (Heparin, Nitro, Insulin, Cardizem)? @ -No Were any procedures done? @ -No Diagnosis/symptom? @ -Hematuria status post TURP procedure Acute, or Chronic, or Acute on Chronic? @ -Acute Uncomplicated (without systemic symptoms) or Complicated (systemic symptoms)? @ -Uncomplicated Side effects of treatment? @ -No Exacerbation, Progression, or Severe Exacerbation? @ -No Poses a threat to life or bodily function? How? (Chest pain, [place], [place], pneumonia, PE, COPD, DKA, ARF, appy, cholecystitis, CVA, Diverticulitis, Homicidal, Suicidal, threat to staff... and all critical care pts) @ -No - Lab Data Lab Results 01/04/24 Range/Units 10:15 Urine Color Red Urine Appearance Turbid (Clear) Urine RBC >182 H (0-5) /hpf Urine WBC >182 H (0-5) /hpf Urine WBC Clumps Many H (None) /hpf Ur Squamous Epith Cells 3 (0-4) /hpf Urine Bacteria Many H (None) /hpf Urine Mucus Rare H (None) /hpf Disposition Clinical Impression: Hematuria, S/P TURP Disposition: HOME SELF-CARE Condition: Stable Instructions (If sedation given, give patient instructions): Transurethral Prostatectomy (DC) Additional Instructions: Full course of antibiotics. Follow-up with Dr. Chawla as scheduled. Drink plenty of fluid to help flush blood from catheter. Return to the ER for any new or worsening concerns. Is patient prescribed a controlled substance at d/c from ED?: No Referrals: Joni Josue MD [Primary Care Provider] - 1-2 days Franck Boles MD [STAFF PHYSICIAN] - 1-2 days Time of Disposition: 11:20
[2024-01-04 10:43] LABS: Bacteria,Urine Many /hpf; Mucus,Urine Rare /hpf; RBC,Urine >182 /hpf (0-5); Squamous Epithelial Cell,Urine 3 /hpf (0-4); WBC,Urine >182 /hpf (0-5)
[2024-01-04 10:44] LABS: Appearance,Urine Turbid (Clear); Color,Urine Red
[2024-01-04 11:31] VITALS: BP 128/73; PULSE 70; RESP 18
== END 2024-01-04 11:31 | disposition home or self-care (01) ==
LOC: EC 09:22
DX: R31.9 Hematuria, unspecified (principal); Z90.49 Acquired absence of other specified parts of digestive tract; Z90.79 Acquired absence of other genital organ(s)
CPT/HCPCS: 81001; 87077; 87086; 87186; 99283

== ENCOUNTER 2024-01-07 06:40 | Emergency (ER) | payer MEDICARE, OTHER ==
[2024-01-07 06:46] VITALS: TEMP 98.1
--- NOTE | 2024-01-07 07:25 | ED ---
General Adult HPI - General Chief complaint: Urogenital Stated complaint: Unable to urinate Time Seen by Provider: 01/07/24 06:51 Source: patient, RN notes reviewed Mode of arrival: ambulatory Limitations: no limitations - History of Present Illness Initial comments: 68-year-old male presents emergency department chief complaint of urinary retention. Patient had his catheter removed yesterday at urologist office. Patient had a catheter placed after TURP procedure by Dr. Boles. States that he has been on antibiotics for possible infection. Patient states that he is only had some dribbling since yesterday afternoon when catheter was removed. Patient denies any fevers or chills no flank pain. - Related Data Home Medications Medication Instructions Recorded Confirmed Aspirin [Adult Low Dose Aspirin EC] 81 mg PO DAILY 10/23/23 12/29/23 Dapagliflozin Propanediol [Farxiga] 10 mg PO QAM 10/23/23 12/29/23 Potassium Chloride [K-Tab ER] 20 meq PO DAILY 10/23/23 12/29/23 Tirzepatide [Mounjaro] 7.5 mg SQ WE 10/23/23 12/29/23 Atorvastatin [Lipitor] 20 mg PO DAILY 12/29/23 12/29/23 Glimepiride 2 mg PO BID 12/29/23 12/29/23 Oxybutynin ER [Ditropan XL] 10 mg PO BID 12/29/23 12/29/23 Previous Rx's Medication Instructions Recorded Ciprofloxacin HCl [Cipro] 500 mg PO Q12HR #14 tablet 01/07/24 Allergies Allergy/AdvReac Type Severity Reaction Status Date / Time No Known Allergies Allergy Verified 01/04/24 09:28 Review of Systems ROS Statement: Those systems with pertinent positive or pertinent negative responses have been documented in the HPI. ROS Other: All systems not noted in ROS Statement are negative. Past Medical History Past Medical History: Diabetes Mellitus, Prostate Disorder Additional Past Medical History / Comment(s): Difficulty urinating due to enlarged prostate, has chahal catheter. Right knee pain at night. History of Any Multi-Drug Resistant Organisms: None Reported Past Surgical History: Appendectomy, Hernia Repair, Orthopedic Surgery Additional Past Surgical History / Comment(s): TURP, OCTOBER 2023. Right thumb surgery. Past Anesthesia/Blood Transfusion Reactions: No Reported Reaction Past Psychological History: No Psychological Hx Reported Smoking Status: Never smoker Past Alcohol Use History: None Reported Past Drug Use History: None Reported - Past Family History Mother Family Medical History: No Reported History General Exam Limitations: no limitations General appearance: alert, in no apparent distress Head exam: Present: atraumatic, normocephalic, normal inspection Neck exam: Present: normal inspection. Absent: tenderness, meningismus, lymphadenopathy Respiratory exam: Present: normal lung sounds bilaterally. Absent: respiratory distress, wheezes, rales, rhonchi, stridor Cardiovascular Exam: Present: regular rate, normal rhythm, normal heart sounds. Absent: systolic murmur, diastolic murmur, rubs, gallop, clicks GI/Abdominal exam: Present: soft, distended, tenderness, normal bowel sounds. Absent: guarding, rebound, rigid Course Vital Signs 01/07/24 01/07/24 06:42 08:00 Temperature 98.1 F Pulse Rate 98 86 Respiratory 20 18 Rate Blood Pressure 139/66 112/55 O2 Sat by Pulse 99 97 Oximetry Medical Decision Making - Medical Decision Making Was pt. sent in by a medical professional or institution (, PA, RACING SECRETARY AND HANDICAPPER, urgent care, hospital, or jail...) When possible be specific @ -No Did you speak to anyone other than the patient for history (EMS, parent, family, police, friend...)? What history was obtained from this source @ -No Did you review nursing and triage notes (agree or disagree)? Why? @ -I reviewed and agree with nursing and triage notes Were old charts reviewed (outside hosp., previous admission, EMS record, old EKG, old radiological studies, urgent care reports/EKG's, jail records)? Report findings @ -No old charts were reviewed Differential Diagnosis (chest pain, altered mental status, abdominal pain women, abdominal pain men, vaginal bleeding, weakness, fever, dyspnea, syncope, headache, dizziness, GI bleed, back pain, seizure, CVA, palpatations, mental health, musculoskeletal)? @ -Urinary retention, UTI EKG interpreted by me (3pts min.). @ -None X-rays interpreted by me (1pt min.). @ -None done CT interpreted by me (1pt min.). @ -None done U/S interpreted by me (1pt. min.). @ -None done What testing was considered but not performed or refused? (CT, X-rays, U/S, labs)? Why? @ -None What meds were considered but not given or refused? Why? @ -None Did you discuss the management of the patient with other professionals (pr ofessionals i.e. , PA, RACING SECRETARY AND HANDICAPPER, lab, RT, psych nurse, social work msw, ladle mechanic, teacher, credit compliance officer, top case assembler)? Give summary @ -No Was smoking cessation discussed for >3mins.? @ -No Was critical care preformed (if so, how long)? @ -No Were there social determinants of health that impacted care today? How? (Homelessness, low income, unemployed, alcoholism, drug addiction, transportation, low edu. Level, literacy, decrease access to med. care, alf, rehab)? @ -No Was there de-escalation of care discussed even if they declined (Discuss DNR or withdrawal of care, Hospice)? DNR status @ -No What co-morbidities impacted this encounter? (DM, HTN, Smoking, COPD, CAD, Cancer, CVA, ARF, Chemo, Hep., AIDS, mental health diagnosis, sleep apnea, morbid obesity)? @ -None Was patient admitted / discharged? Hospital course, mention meds given and route, prescriptions, significant lab abnormalities, going to OR and other pertinent info. @ -[Discharge Chahal catheter was placed over 1400 mL were drained from bladder. Patient continues to have hematuria, large amount of WBCs, patient was placed on oral antibiotics return parameters allan. Patient will follow-up with urology. Undiagnosed new problem with uncertain prognosis? @ -No Drug Therapy requiring intensive monitoring for toxicity (Heparin, Nitro, Insulin, Cardizem)? @ -No Were any procedures done? @ -No Diagnosis/symptom? @ -Urinary retention, UTI Acute, or Chronic, or Acute on Chronic? @ -Acute Uncomplicated (without systemic symptoms) or Complicated (systemic symptoms)? @ -Uncomplicated Side effects of treatment? @ -No Exacerbation, Progression, or Severe Exacerbation? @ -No Poses a threat to life or bodily function? How? (Chest pain, [place], [place], pneumonia, PE, COPD, DKA, ARF, appy, cholecystitis, CVA, Diverticulitis, Homicidal, S uicidal, threat to staff... and all critical care pts) @ -No - Lab Data Lab Results 01/07/24 Range/Units 07:46 Urine Color Yellow Urine Appearance Cloudy (Clear) Urine pH 5.5 (5.0-8.0) Ur Specific [place] 1.015 (1.001-1.035) Urine Protein 1+ H (Negative) Urine Glucose (UA) 4+ H (Negative) Urine Ketones Negative (Negative) Urine Blood Large H (Negative) Urine Nitrite Negative (Negative) Urine Bilirubin Negative (Negative) Urine Urobilinogen <2.0 (<2.0) mg/dL Ur Leukocyte Esterase Large H (Negative) Urine RBC >182 H (0-5) /hpf Urine WBC >182 H (0-5) /hpf Urine WBC Clumps Few H (None) /hpf Urine Bacteria Many H (None) /hpf Urine Mucus Rare H (None) /hpf Disposition Clinical Impression: Urinary retention Disposition: HOME SELF-CARE Condition: Stable Instructions (If sedation given, give patient instructions): Urinary Tract Infection in Men (ED) Additional Instructions: Please return to the Emergency Department if symptoms worsen or any other concerns. Prescriptions: Ciprofloxacin HCl [Cipro] 500 mg PO Q12HR #14 tablet Is patient prescribed a controlled substance at d/c from ED?: No Referrals: Joni Josue MD [Primary Care Provider] - 1-2 days Franck Boles MD [STAFF PHYSICIAN] - 1-2 days Time of Disposition: 08:20
[2024-01-07 07:57] LABS: Appearance,Urine Cloudy (Clear); Bacteria,Urine Many /hpf; Bilirubin,Urine Negative (Negative); Blood,Urine Large (Negative); Color,Urine Yellow; Glucose,Urine (UA) 4+ (Negative); Ketones,Urine Negative (Negative); Leukocyte Esterase,Urine Large (Negative); Mucus,Urine Rare /hpf; Nitrite,Urine Negative (Negative); PH, Urine 5.5 (5.0-8.0); Protein,Urine 1+ (Negative); RBC,Urine >182 /hpf (0-5); Specific Gravity,Urine 1.015 (1.001-1.035); Urobilinogen,Urine <2.0 mg/dL (<2.0); WBC,Urine >182 /hpf (0-5)
[2024-01-07 08:16] VITALS: BP 112/55; PULSE 86; RESP 18
== END 2024-01-07 08:33 | disposition home or self-care (01) ==
LOC: EC 06:40
DX: R33.9 Retention of urine, unspecified (principal)
CPT/HCPCS: 51702; 51798; 81001; 87077; 87086; 87186; 99283

== ENCOUNTER 2024-01-12 14:15 | Emergency (ER) | payer MEDICARE, OTHER ==
[2024-01-12 14:30] VITALS: RESP 16; TEMP 98
--- NOTE | 2024-01-12 15:51 | ED ---
Male Urogenital HPI - General Chief complaint: Urogenital Stated complaint: Cath Issue Time Seen by Provider: 01/12/24 14:34 Source: patient, RN notes reviewed Mode of arrival: ambulatory Limitations: no limitations - History of Present Illness Initial comments: 5-year-old male with history of BPH with urinary catheter in place presents emergency department chief complaint of urinary catheter issues. Patient states that on Friday he noticed that there was bloody output from his catheter and has pain at the tip of the penis where the catheter comes out over the last couple days as well. Patient states that last week he saw his urologist outpatient where they removed the Chahal catheter to attempt voiding however patient return to emergency department that evening for being unable to void and a catheter was replaced. Patient has an appointment with urologist this upcoming Friday. He denies abdominal pain, flank pain, nausea, vomiting. no blood thinner use. history of similar symptoms and states that this 'has cleared up on its own in the past'. - Related Data Home Medications Medication Instructions Recorded Confirmed Aspirin [Adult Low Dose Aspirin EC] 81 mg PO DAILY 10/23/23 12/29/23 Dapagliflozin Propanediol [Farxiga] 10 mg PO QAM 10/23/23 12/29/23 Potassium Chloride [K-Tab ER] 20 meq PO DAILY 10/23/23 12/29/23 Tirzepatide [Mounjaro] 7.5 mg SQ WE 10/23/23 12/29/23 Atorvastatin [Lipitor] 20 mg PO DAILY 12/29/23 12/29/23 Glimepiride 2 mg PO BID 12/29/23 12/29/23 Oxybutynin ER [Ditropan XL] 10 mg PO BID 12/29/23 12/29/23 Previous Rx's Medication Instructions Recorded Ciprofloxacin HCl [Cipro] 500 mg PO Q12HR #14 tablet 01/07/24 Tetracycline HCl 500 mg PO BID #10 tab 01/12/24 Allergies Allergy/AdvReac Type Severity Reaction Status Date / Time No Known Allergies Allergy Verified 01/04/24 09:28 Review of Systems ROS Statement: Those systems with pertinent positive or pertinent negative responses have been documented in the HPI. ROS Other: All systems not noted in ROS Statement are negative. Past Medical History Past Medical History: Diabetes Mellitus, Prostate Disorder Additional Past Medical History / Comment(s): Difficulty urinating due to enlarged prostate, has chahal catheter. Right knee pain at night. History of Any Multi-Drug Resistant Organisms: None Reported Past Surgical History: Appendectomy, Hernia Repair, Orthopedic Surgery Additional Past Surgical History / Comment(s): TURP, OCTOBER 2023. Right thumb surgery. Past Anesthesia/Blood Transfusion Reactions: No Reported Reaction Past Psychological History: No Psychological Hx Reported Smoking Status: Never smoker Past Alcohol Use History: None Reported Past Drug Use History: None Reported - Past Family History Mother Family Medical History: No Reported History General Exam Limitations: no limitations General appearance: alert, in no apparent distress, obese ENT exam: Present: normal exam, mucous membranes moist Neck exam: Present: normal inspection. Absent: tenderness, meningismus, lymphadenopathy Respiratory exam: Present: normal lung sounds bilaterally. Absent: respiratory distress, wheezes, rales, rhonchi, stridor Cardiovascular Exam: Present: regular rate, normal rhythm, normal heart sounds. Absent: systolic murmur, diastolic murmur, rubs, gallop, clicks GI/Abdominal exam: Present: soft, normal bowel sounds, hernia (umbilical). Absent: distended, tenderness, guarding, rebound, rigid exam: Present: normal inspection. Absent: testicular tenderness, scrotal swelling Extremities exam: Present: normal inspection, full ROM, normal capillary refill. Absent: tenderness, pedal edema, joint swelling, calf tenderness Back exam: Present: normal inspection Neurological exam: Present: alert, oriented X3, CN II-XII intact Skin exam: Present: warm, dry, intact, normal color. Absent: rash Course Vital Signs 01/12/24 01/12/24 14:27 17:31 Temperature 98.0 F Pulse Rate 69 63 Respiratory 16 16 Rate Blood Pressure 102/61 111/77 O2 Sat by Pulse 96 98 Oximetry Medical Decision Making - Medical Decision Making Was pt. sent in by a medical professional or institution (, PA, HOPPER OPERATOR, urgent care, hospital, or retirement...) When possible be specific @ -No Did you speak to anyone other than the patient for history (EMS, parent, family, police, friend...)? What history was obtained from this source @ -No Did you review nursing and triage notes (agree or disagree)? Why? @ -I reviewed and agree with nursing and triage notes Were old charts reviewed (outside hosp., previous admission, EMS record, old EKG, old radiological studies, urgent care reports/EKG's, retirement records)? Report findings @ -I reviewed the patient's emergency department visit note from 01/07/24 he presented with a chief complaint of urinary retention. His Chahal catheter was moved at his urologist office the day prior and Chahal catheter was placed in the emergency department and patient was discharged home with oral antibiotics for infection. Urine culture that was collected on 01/07/24 revealed Enterobacter cloacae, patient was discharged home with oral ciprofloxacin which is not susceptible to this bacteria and therefore medication is changed to doxycycline and susceptibility review shows tetracyclines are susceptible. Differential Diagnosis (chest pain, altered mental status, abdominal pain women, abdominal pain men, vaginal bleeding, weakness, fever, dyspnea, syncope, headache, dizziness, GI bleed, back pain, seizure, CVA, palpatations, mental health, musculoskeletal)? @ -Differential Abdominal Pain Men: Appendicitis, cholecystitis, diverticulosis, ischemic bowel, pancreatitis, hepatitis, UTI, gastroenteritis, AAA, incarcerated hernia, bowel obstruction, constipation, inflammatory bowel, hepatitis, peptic ulcer disease, splenic infarction, perforated viscus, testicular torsion, this is not meant to be an all-inclusive list EKG interpreted by me (3pts min.). @ -None X-rays interpreted by me (1pt min.). @ -None done CT interpreted by me (1pt min.). @ -None done U/S interpreted by me (1pt. min.). @ -None done What testing was considered but not performed or refused? (CT, X-rays, U/S, labs)? Why? @ -None What meds were considered but not given or refused? Why? @ -None Did you discuss the management of the patient with other professionals (professionals i.e. , PA, HOPPER OPERATOR, lab, RT, psych nurse, geriatric social work professor, debt management counselor, teacher, supervisor dog license officer, classification case manager)? Give summary @ -No Was smoking cessation discussed for >3mins.? @ -No Was critical care preformed (if so, how long)? @ -No Were there social determinants of health that impacted care today? How? (Homelessness, low income, unemployed, alcoholism, drug addiction, transportation, low edu. Level, literacy, decrease access to med. care, senior care, rehab)? @ -No Was there de-escalation of care discussed even if they declined (Discuss DNR or withdrawal of care, Hospice)? DNR status @ -No What co-morbidities impacted this encounter? (DM, HTN, Smoking, COPD, CAD, Cancer, CVA, ARF, Chemo, Hep., AIDS, mental health diagnosis, sleep apnea, morbid obesity)? @ -None Was patient admitted / discharged? Hospital course, mention meds given and route, prescriptions, significant lab abnormalities, going to OR and other pertinent info. @ -Discharge. 68-year-old male with urinary catheter complication. On exam patient is resting comfortably no signs of abdominal tenderness. There is bloody output from the urinary catheter bag. Bladder scan with urinary catheter in place reveals a residual volume of 0 mL. Urinary catheter was changed with drainage of large urinary clot. Reviewed previous emergency department visit where urine culture was obtained that grew enterobacter cloacae that ciprofloxacin which is the antibiotic the patient was prescribed home with will not cover. Patient will be sent a prescription for tetracycline as this medication is susceptible for the bacteria. Patient does have a follow-up appointment scheduled with his urologist on Friday for further evaluation. All questions answered at bedside and strict return parameters discussed with the patient he is verbalized understanding. Case discussed with Dr. Olmos Undiagnosed new problem with uncertain prognosis? @ -No Drug Therapy requiring intensive monitoring for toxicity (Heparin, Nitro, Insulin, Cardizem)? @ -No Were any procedures done? @ -No Diagnosis/symptom? @ -urniary catheter malfunction Acute, or Chronic, or Acute on Chronic? @ -Acute Uncomplicated (without systemic symptoms) or Complicated (systemic symptoms)? @ -Uncomplicated Side effects of treatment? @ -No Exacerbation, Progression, or Severe Exacerbation? @ -No Poses a threat to life or bodily function? How? (Chest pain, [place], [place], pneumonia, PE, COPD, DKA, ARF, appy, cholecystitis, CVA, Diverticulitis, Homicidal, Suicidal, threat to staff... and all critical care pts) @ -No - Lab Data Lab Results 01/12/24 Range/Units 15:50 Urine Color Yellow Urine Appearance Cloudy (Clear) Urine pH 5.5 (5.0-8.0) Ur Specific [place] 1.013 (1.001-1.035) Urine Protein 1+ H (Negative) Urine Glucose (UA) 3+ H (Negative) Urine Ketones Negative (Negative) Urine Blood Large H (Negative) Urine Nitrite Negative (Negative) Urine Bilirubin Negative (Negative) Urine Urobilinogen <2.0 (<2.0) mg/dL Ur Leukocyte Esterase Large H (Negative) Urine RBC >182 H (0-5) /hpf Urine WBC 101 H (0-5) /hpf Urine Mucus Rare H (None) /hpf Disposition Clinical Impression: Hematuria, Blocked urinary catheter Disposition: HOME SELF-CARE Condition: Stable Instructions (If sedation given, give patient instructions): Urinary Tract Infection in Men (ED) Additional Instructions: Return to the emergency department any new or worsening symptoms. Complete full course of antibiotics as prescribed. Follow-up as scheduled on Friday with urologist. Prescriptions: Tetracycline HCl 500 mg PO BID #10 tab Is patient prescribed a controlled substance at d/c from ED?: No Referrals: Joni Josue MD [Primary Care Provider] - 1-2 days Time of Disposition: 17:11
[2024-01-12 17:18] LABS: Appearance,Urine Cloudy (Clear); Bilirubin,Urine Negative (Negative); Blood,Urine Large (Negative); Color,Urine Yellow; Glucose,Urine (UA) 3+ (Negative); Ketones,Urine Negative (Negative); Leukocyte Esterase,Urine Large (Negative); Mucus,Urine Rare /hpf; Nitrite,Urine Negative (Negative); PH, Urine 5.5 (5.0-8.0); Protein,Urine 1+ (Negative); RBC,Urine >182 /hpf (0-5); Specific Gravity,Urine 1.013 (1.001-1.035); Urobilinogen,Urine <2.0 mg/dL (<2.0); WBC,Urine 101 /hpf (0-5)
[2024-01-12 17:32] VITALS: BP 111/77; PULSE 63
== END 2024-01-12 17:34 | disposition home or self-care (01) ==
LOC: EC 14:15
CPT/HCPCS: 51798; 81001; 99283

== ENCOUNTER 2024-01-19 14:44 | Emergency (ER) | payer MEDICARE, OTHER ==
[2024-01-19 14:49] VITALS: RESP 18
--- NOTE | 2024-01-19 15:35 | ED ---
Male Urogenital HPI - General Chief complaint: Urogenital Stated complaint: urogenital Time Seen by Provider: 01/19/24 15:02 Source: patient, RN notes reviewed Mode of arrival: ambulatory Limitations: no limitations - History of Present Illness Initial comments: 68-year-old male with history of BPH with urinary catheter in place presents emergency department chief complaint of urinary blood clots. Patient states that yesterday he noticed there was passage of blood clots from his meatus that were around the catheter. Patient denies abdominal pain, fevers, chills, nausea, vomiting. Patient is currently being treated for a urinary tract infection has a few days left of antibiotic. Patient has an appointment scheduled with his urologist on Friday. urinary cath is draining appropriately. - Related Data Home Medications Medication Instructions Recorded Confirmed Aspirin [Adult Low Dose Aspirin EC] 81 mg PO DAILY 10/23/23 12/29/23 Dapagliflozin Propanediol [Farxiga] 10 mg PO QAM 10/23/23 12/29/23 Potassium Chloride [K-Tab ER] 20 meq PO DAILY 10/23/23 12/29/23 Tirzepatide [Mounjaro] 7.5 mg SQ WE 10/23/23 12/29/23 Atorvastatin [Lipitor] 20 mg PO DAILY 12/29/23 12/29/23 Glimepiride 2 mg PO BID 12/29/23 12/29/23 Oxybutynin ER [Ditropan XL] 10 mg PO BID 12/29/23 12/29/23 Previous Rx's Medication Instructions Recorded Ciprofloxacin HCl [Cipro] 500 mg PO Q12HR #14 tablet 01/07/24 Tetracycline HCl 500 mg PO BID #10 tab 01/12/24 Allergies Allergy/AdvReac Type Severity Reaction Status Date / Time No Known Allergies Allergy Verified 01/19/24 14:49 Review of Systems ROS Statement: Those systems with pertinent positive or pertinent negative responses have been documented in the HPI. ROS Other: All systems not noted in ROS Statement are negative. Past Medical History Past Medical History: Diabetes Mellitus, Prostate Disorder Additional Past Medical History / Comment(s): Difficulty urinating due to enlarged prostate, has chahal catheter. Right knee pain at night. History of Any Multi-Drug Resistant Organisms: None Reported Past Surgical History: Appendectomy, Hernia Repair, Orthopedic Surgery Additional Past Surgical History / Comment(s): TURP, OCTOBER 2023. Right thumb surgery. Past Anesthesia/Blood Transfusion Reactions: No Reported Reaction Past Psychological History: No Psychological Hx Reported Smoking Status: Never smoker Past Alcohol Use History: None Reported Past Drug Use History: None Reported - Past Family History Mother Family Medical History: No Reported History General Exam Limitations: no limitations General appearance: alert, in no apparent distress Head exam: Present: atraumatic, normocephalic, normal inspection Eye exam: Present: normal appearance, PERRL, EOMI. Absent: scleral icterus, conjunctival injection, periorbital swelling Neck exam: Present: normal inspection. Absent: tenderness, meningismus, lymphadenopathy Respiratory exam: Present: normal lung sounds bilaterally. Absent: respiratory distress, wheezes, rales, rhonchi, stridor Cardiovascular Exam: Present: regular rate, normal rhythm, normal heart sounds. Absent: systolic murmur, diastolic murmur, rubs, gallop, clicks GI/Abdominal exam: Present: soft, normal bowel sounds. Absent: distended, tenderness, guarding, rebound, rigid exam: Present: other (urethral bleeding, not active, clot removed) Extremities exam: Present: normal inspection, full ROM, normal capillary refill. Absent: tenderness, pedal edema, joint swelling, calf tenderness Back exam: Present: normal inspection Skin exam: Present: warm, dry, intact, normal color. Absent: rash Course Vital Signs 01/19/24 01/19/24 14:46 16:09 Temperature 98 F 97.9 F Pulse Rate 95 86 Respiratory 18 18 Rate Blood Pressure 133/75 126/76 O2 Sat by Pulse 98 99 Oximetry Medical Decision Making - Medical Decision Making Was pt. sent in by a medical professional or institution (, PA, DRYWALL HANGER FRAMER, urgent care, hospital, or [facility]...) When possible be specific @ -No Did you speak to anyone other than the patient for history (EMS, parent, family, police, friend...)? What history was obtained from this source @ -No Did you review nursing and triage notes (agree or disagree)? Why? @ -I reviewed and agree with nursing and triage notes Were old charts reviewed (outside hosp., previous admission, EMS record, old EKG, old radiological studies, urgent care reports/EKG's, [facility] records)? Report findings @ -reviewed chart note from 01/08/24 where patient's urinary cath was replaced and was draining appropriately. Differential Diagnosis (chest pain, altered mental status, abdominal pain women, abdominal pain men, vaginal bleeding, weakness, fever, dyspnea, syncope, headache, dizziness, GI bleed, back pain, seizure, CVA, palpatations, mental health, musculoskeletal)? @ -Differential Abdominal Pain Men: Appendicitis, cholecystitis, diverticulosis, ischemic bowel, pancreatitis, hepatitis, UTI, gastroenteritis, AAA, incarcerated hernia, bowel obstruction, constipation, inflammatory bowel, hepatitis, peptic ulcer disease, splenic infarction, perforated viscus, testicular torsion, this is not meant to be an all-inclusive list EKG interpreted by me (3pts min.). @ -None X-rays interpreted by me (1pt min.). @ -None done CT interpreted by me (1pt min.). @ -None done U/S interpreted by me (1pt. min.). @ -None done What testing was considered but not performed or refused? (CT, X-rays, U/S, labs)? Why? @ -urinalysis considered but deferred at this time. patient is currently being treated outpatient for urinary tract infection with antibiotics. What meds were considered but not given or refused? Why? @ -None Did you discuss the management of the patient with other professionals (professionals i.e. , PA, DRYWALL HANGER FRAMER, lab, RT, psych nurse, social secretary, furnace checker, teacher, marine safety officer, social work case manager)? Give summary @ -No Was smoking cessation discussed for >3mins.? @ -No Was critical care preformed (if so, how long)? @ -No Were there social determinants of health that impacted care today? How? (Homelessness, low income, unemployed, alcoholism, drug addiction, transportation, low edu. Level, literacy, decrease access to med. care, penitentiary, rehab)? @ -No Was there de-escalation of care discussed even if they declined (Discuss DNR or withdrawal of care, Hospice)? DNR status @ -No What co-morbidities impacted this encounter? (DM, HTN, Smoking, COPD, CAD, Cancer, CVA, ARF, Chemo, Hep., AIDS, mental health diagnosis, sleep apnea, morbid obesity)? @ -None Was patient admitted / discharged? Hospital course, mention meds given and route, prescriptions, significant lab abnormalities, going to OR and other pertinent info. @ -Discharge. 5-year-old male with ureteral bleeding. On examination patient's catheter is draining appropriately and flushes. There is noted dried blood and reported by nursing staff removal of blood clot from the renal opening. Patient does have a follow-up appointment scheduled with his urologist on Friday for further evaluation. Symptoms are likely secondary to a internal urethral trauma has caused bleeding that is distal to the bladder. Urinary catheter will not be exchanged at this time as this may cause further damage and potential worsening bleeding. patient is stable for discharge at this time. discussed with Dr. Mcleod Undiagnosed new problem with uncertain prognosis? @ -No Drug Therapy requiring intensive monitoring for toxicity (Heparin, Nitro, Insulin, Cardizem)? @ -No Were any procedures done? @ -No Diagnosis/symptom? @ -hematuria, blood clots in urine Acute, or Chronic, or Acute on Chronic? @ -acute Uncomplicated (without systemic symptoms) or Complicated (systemic symptoms)? @ -uncomplicated Side effects of treatment? @ -No Exacerbation, Progression, or Severe Exacerbation? @ -No Poses a threat to life or bodily function? How? (Chest pain, [place], [place], pneumonia, PE, COPD, DKA, ARF, appy, cholecystitis, CVA, Diverticulitis, Homicidal, Suicidal, threat to staff... and all critical care pts) @ -No Disposition Clinical Impression: Hematuria, Urinary catheter complication Disposition: HOME SELF-CARE Condition: Good Instructions (If sedation given, give patient instructions): Chahal Catheter Placement and Care (ED) Additional Instructions: Return to emergency room for any new or worsening symptoms. Recommend that you continue antibiotics as prescribed and follow-up outpatient with your urologist as scheduled Is patient prescribed a controlled substance at d/c from ED?: No Referrals: Joni Josue MD [Primary Care Provider] - 1-2 days Time of Disposition: 15:35
[2024-01-19 16:11] VITALS: BP 126/76; PULSE 86; TEMP 97.9
== END 2024-01-19 16:11 | disposition home or self-care (01) ==
LOC: EC 14:44
DX: R39.9 Unspecified symptoms and signs involving the genitourinary system
CPT/HCPCS: 51702; 99283

== ENCOUNTER 2024-10-24 15:15 | Emergency (ER) | payer MEDICARE, OTHER ==
[2024-10-24 15:36] VITALS: BP 135/79; PULSE 98; RESP 18; TEMP 98.2
--- NOTE | 2024-10-24 16:14 | ED ---
Extremity Problem HPI - General Chief complaint: Extremity Problem,Nontraumatic Stated complaint: R leg swelling Time Seen by Provider: 10/24/24 16:00 Source: patient, RN notes reviewed Mode of arrival: ambulatory Limitations: no limitations - History of Present Illness Initial comments: This is a 69-year-old male who presents to the emergency department for right leg pain and swelling. States that it started about a week ago. He has also started to notice some redness. Denies any injuries. Denies any history of blood clots or cellulitis. Denies any blood thinner use, chest pain, or shortness of breath. MD Complaint: extremity pain, extremity swelling - Related Data Home Medications Medication Instructions Recorded Confirmed Aspirin [Adult Low Dose Aspirin EC] 81 mg PO DAILY 10/23/23 12/29/23 Dapagliflozin Propanediol [Farxiga] 10 mg PO QAM 10/23/23 12/29/23 Potassium Chloride [K-Tab ER] 20 meq PO DAILY 10/23/23 12/29/23 Tirzepatide [Mounjaro] 7.5 mg SQ WE 10/23/23 12/29/23 Atorvastatin [Lipitor] 20 mg PO DAILY 12/29/23 12/29/23 Glimepiride 2 mg PO BID 12/29/23 12/29/23 Oxybutynin ER [Ditropan XL] 10 mg PO BID 12/29/23 12/29/23 Previous Rx's Medication Instructions Recorded Ciprofloxacin HCl [Cipro] 500 mg PO Q12HR #14 tablet 01/07/24 Tetracycline HCl 500 mg PO BID #10 tab 01/12/24 Cephalexin [Keflex] 500 mg PO Q6HR 7 Days #28 cap 10/24/24 Ketorolac [Toradol] 10 mg PO Q6HR PRN #15 tab 10/24/24 Sulfamethox-Tmp 800-160Mg [Bactrim 1 tab PO Q12HR 7 Days #14 tab 10/24/24 DS 800-160 mg] Allergies Allergy/AdvReac Type Severity Reaction Status Date / Time No Known Allergies Allergy Verified 10/24/24 15:35 Review of Systems ROS Statement: Those systems with pertinent positive or pertinent negative responses have been documented in the HPI. ROS Other: All systems not noted in ROS Statement are negative. Past Medical History Past Medical History: Diabetes Mellitus, Prostate Disorder Additional Past Medical History / Comment(s): Difficulty urinating due to enlarged prostate, has chahal catheter. Right knee pain at night. History of Any Multi-Drug Resistant Organisms: CRE Date of last positivie culture/infection: 05/10/24 MDRO Source:: urine Past Surgical History: Appendectomy, Hernia Repair, Orthopedic Surgery Additional Past Surgical History / Comment(s): TURP, OCTOBER 2023. Right thumb surgery. Past Anesthesia/Blood Transfusion Reactions: No Reported Reaction Past Psychological History: No Psychological Hx Reported Smoking Status: Never smoker Past Alcohol Use History: None Reported Past Drug Use History: None Reported - Past Family History Mother Family Medical History: No Reported History General Exam Limitations: no limitations General appearance: alert, in no apparent distress Head exam: Present: atraumatic, normocephalic, normal inspection Respiratory exam: Present: normal lung sounds bilaterally. Absent: respiratory distress, wheezes, rales, rhonchi, stridor Cardiovascular Exam: Present: regular rate, normal rhythm Extremities exam: Present: other (Swelling and tenderness to the right lower extremity with erythema and warmth to the distal aspect. 2+ DP and PT pulses) Neurological exam: Present: alert, oriented X3, CN II-XII intact Psychiatric exam: Present: normal affect, normal mood Course Vital Signs 10/24/24 15:33 Temperature 98.2 F Pulse Rate 98 Respiratory 18 Rate Blood Pressure 135/79 O2 Sat by Pulse 95 Oximetry Medical Decision Making - Medical Decision Making This is a 69-year-old male who presents to the emergency department for right leg pain. Was pt. sent in by a medical professional or institution? @ -No Did you speak to anyone other than the patient for history? @ -No Did you review nursing and triage notes? @ -Yes, and I agree, it is accurate with regards to the patient's symptoms. Were old charts reviewed? @ -No Differential Diagnosis? @ -Differential Musculoskeletal Muscular strain, contusion, ligament sprain, fracture, arthritis, septic arthritis, bursitis, cellulitis, muscle spasm, nerve compression, DVT, arterial occlusion, herpes zoster, electrolyte abnormality, tumor.... This is not meant to be in all inclusive list EKG interpreted by me (3pts min.)? @ -Not obtained X-rays interpreted by me (1pt min.)? @ -Not obtained CT interpreted by me (1pt min.)? @ -Not obtained U/S interpreted by me (1pt. min.)? @ -Duplex ultrasound of the right lower extremity obtained. My interpretation identifies no evidence of a DVT. What testing was considered but not performed? (CT, X-rays, U/S, labs)? Why? @ -None What meds were considered but not given? Why? @ -None Did you discuss the management of the patient with other professionals? @ -No Did you reconcile home meds? @ -No Was smoking cessation discussed for >3mins.? @ -No Was critical care preformed (if so, how long)? @ -No Were there social determinants of health that impacted care today? How? (Homelessness, low income, unemployed, alcoholism, drug addiction, transpor tation, low edu. Level, literacy, decrease access to med. care, penitentiary, rehab)? @ -No Was there de-escalation of care discussed even if they declined? (Discuss DNR or withdrawal of care, Hospice)? @ -No What co-morbidities impacted this encounter? (DM, HTN, Smoking, COPD, CAD, Cancer, CVA, Hep., AIDS, mental health diagnosis, sleep apnea, morbid obesity)? @ -DM Was patient admitted / discharged? @ -Discharged. Lab work demonstrates a mildly elevated CRP of 1.0 and is otherwise unremarkable. Duplex ultrasound of the right lower extremity obtained revealing no evidence of a DVT. He had mild generalized swelling with some erythema suggestive of a mild cellulitis. Prescription for Bactrim, Keflex, and Toradol provided with dosing instructions reviewed. Also advised elevation and compression as well as close follow-up with his PCP. Patient discharged home in stable condition. Case discussed with ED attending Dr. Dong. Return precautions reviewed in depth, the patient is instructed to return to the emergency department with any new, worsening, or concerning symptoms. Patient verbalized understanding. Undiagnosed new problem with uncertain prognosis? @ -None Drug Therapy requiring intensive monitoring for toxicity (Heparin, Nitro, Insulin, Cardizem)? @ -None Were any procedures done? @ -None Diagnosis/symptom? @ -Right lower extremity cellulitis Acute, or Chronic, or Acute on Chronic? @ -Acute Uncomplicated (without systemic symptoms) or Complicated (systemic symptoms)? @ -Uncomplicated Side effects of treatment? @ -None Exacerbation, Progression, or Severe Exacerbation] @ -Not applicable Poses a threat to life or bodily function? @ -No - Lab Data Result diagrams: 10/24/24 17:52 10/24/24 17:52 Lab Results 10/24/24 10/24/24 10/24/24 Range/Units 17:52 17:52 17:52 WBC 9.00 (4.50-10.00) 10*3/uL RBC 4.69 (4.40-5.60) 10*6/uL Hgb 13.5 (13.0-17.0) g/dL Hct 41.6 (39.6-50.0) % MCV 88.7 (80.0-97.0) fL MCH 28.8 (27.0-32.0) pg MCHC 32.5 (32.0-37.0) g/dL Plt Count 161 (140-440) 10*3/uL MPV 10.3 (9.5-12.2) fL Immature Gran % (Auto) 0.3 % Neutrophils % 64.4 % Lymphocytes % 20.6 % Monocytes % 11.6 % Eosinophils % 2.2 % Basophils % 0.9 % Immature Gran # 0.03 (0.00-0.04) 10*3/uL Neutrophils # 5.80 (1.80-7.70) 10*3/uL Lymphocytes # 1.85 (0.90-5.00) 10*3/uL Monocytes # 1.04 H (0.20-1.00) 10*3/uL Eosinophils # 0.20 (0.04-0.35) 10*3/uL Basophils # 0.08 (0.00-0.10) 10*3/uL Sodium 139 (137-145) mmol/L Potassium 4.7 (3.5-5.1) mmol/L Chloride 106 (98-107) mmol/L Carbon Dioxide 22 (22-30) mmol/L Anion Gap 11 mmol/L BUN 18 (9-20) mg/dL Creatinine 0.91 (0.66-1.25) mg/dL Est GFR (CKD-EPI)AfAm >90 (>60 ml/min/1.73 sqM) Est GFR (CKD-EPI)NonAf 85 (>60 ml/min/1.73 sqM) Glucose 148 H (74-99) mg/dL Plasma Lactic Acid Raheem 1.7 (0.7-2.0) mmol/L Calcium 9.5 (8.4-10.2) mg/dL Total Bilirubin 0.7 (0.2-1.3) mg/dL AST 26 (17-59) U/L ALT 25 (4-49) U/L Alkaline Phosphatase 76 (38-126) U/L C-Reactive Protein 1.0 H (<1.0) mg/dL Total Protein 6.3 (6.3-8.2) g/dL Albumin 3.7 (3.5-5.0) g/dL - Radiology Data Radiology results: report reviewed, image reviewed Disposition Clinical Impression: Cellulitis of right lower extremity Disposition: HOME SELF-CARE Instructions (If sedation given, give patient instructions): Cellulitis (ED) Additional Instructions: Return to the emergency department with any new, worsening, or concerning symptoms. Take both antibiotics as prescribed for 7 days. Take the Toradol with Tylenol as needed for pain relief. If you choose to take the Toradol, do not take any other anti-inflammatories such as ibuprofen, take one or the other. Follow up with your primary care provider in 1-2 days. Prescriptions: Sulfamethox-Tmp 800-160Mg [Bactrim DS 800-160 mg] 1 tab PO Q12HR 7 Days #14 tab Cephalexin [Keflex] 500 mg PO Q6HR 7 Days #28 cap Ketorolac [Toradol] 10 mg PO Q6HR PRN #15 tab PRN Reason: Pain Is patient prescribed a controlled substance at d/c from ED?: No Referrals: Joni Josue MD [Primary Care Provider] - 1-2 days Time of Disposition: 18:38
--- NOTE | 2024-10-24 17:38 | US ---
EXAMINATION TYPE: US venous doppler duplex LE RT DATE OF EXAM: 10/24/2024 4:46 PM COMPARISON: NONE CLINICAL INDICATION: Male, 69 years old with history of Right leg pain and swelling; right leg pain, Pain TECHNIQUE: The lower extremity deep venous system is examined utilizing real time linear array sonog althea with graded compression, color doppler sonography, and spectral doppler. SIDE PERFORMED: Right FINDINGS: VESSELS IMAGED: Common Femoral Vein Deep Femoral Vein Greater Saphenous Vein * Femoral Vein Popliteal Vein Small Saphenous Vein * Proximal Calf Veins (* superficial vessels) Right Leg: Negative for DVT, Color Doppler imaging shows patency of the vessels. Spectral waveforms are within normal limits. IMPRESSION: No ultrasound evidence for deep venous thrombosis. [facility], , 10/24/2024 5:36 PM
[2024-10-24 18:01] LABS: Basophils # (A) 0.08 10*3/uL (0.00-0.10); Basophils % (A) 0.9 %; Eosinophils % (A) 2.2 %; HCT 41.6 % (39.6-50.0); HGB 13.5 g/dL (13.0-17.0); Lymphocytes # (A) 1.85 10*3/uL (0.90-5.00); Lymphocytes % (A) 20.6 %; MCH 28.8 pg (27.0-32.0); MCHC 32.5 g/dL (32.0-37.0); MCV 88.7 fL (80.0-97.0); Mean Platelet Volume 10.3 fL (9.5-12.2); Monocytes # (A) 1.04 10*3/uL (0.20-1.00); Monocytes % (A) 11.6 %; Neutrophils % (A) 64.4 %; Platelet Count 161 10*3/uL (140-440); RBC 4.69 10*6/uL (4.40-5.60); RDW 15.3 % (11.5-14.5)
[2024-10-24 18:29] LABS: ALT 25 U/L (4-49); African American GFR (CKD) >90 (>60 ml/min/1.73 sqM); Albumin 3.7 g/dL (3.5-5.0); Anion Gap 11 mmol/L; Blood Urea Nitrogen 18 mg/dL (9-20); Calcium 9.5 mg/dL (8.4-10.2); Carbon Dioxide 22 mmol/L (22-30); Chloride 106 mmol/L (98-107); Glucose 148 mg/dL (74-99); Non-African American GFR(CKD) 85 (>60 ml/min/1.73 sqM); Sodium 139 mmol/L (137-145); Total Bilirubin 0.7 mg/dL (0.2-1.3); Total Protein 6.3 g/dL (6.3-8.2)
[2024-10-24 18:31] LABS: AST 26 U/L (17-59); Alkaline Phosphatase 76 U/L (38-126); Potassium 4.7 mmol/L (3.5-5.1)
[2024-10-24] MEDS: CEPHALEXIN 500MG STARTER PACK 4 CAP BTL PO STA (19:25)
[2024-10-24] MEDS: ACET/COD 300 MG/30 MG STARTER PACK 6 TAB BTL PO STA (19:25)
[2024-10-24] MEDS: SULFAMETH-TMP DS STARTER PACK 2 TAB BTL PO STA (19:25)
[2024-10-24] MEDS: HYDROcodone/APAP 5-325MG 1 EACH TAB PO STA (19:25)
[2024-10-25 09:17] LABS: Erythrocyte Sedimentation Rate 25 mm/Hr (0-20)
== END 2024-10-24 19:31 | disposition home or self-care (01) ==
LOC: EC 15:15
DX: L03.115 Cellulitis of right lower limb (principal); E11.9 Type 2 diabetes mellitus without complications
CPT/HCPCS: 36415; 80053; 83605; 85025; 85652; 86140; 99284